=== PATIENT | male | born 1985 | race Caucasian/White ===

== ENCOUNTER 2022-03-12 17:38 | Emergency (ER) | payer BC, SELFPAY ==
--- NOTE | 2022-03-12 18:43 | ED.LOWEXIN ---
HPI - Extremity Injury (Lower) General Time Seen by Provider: 18:30 Date Seen: 03/12/22 Chief Complaint: Extremity Pain/Injury, Lower Stated Complaint: INFECTED LEG/FEVER Time Seen by Provider: 03/12/22 17:44 Source: patient and family Mode of arrival: ambulatory Limitations: no limitations History of Present Illness HPI Narrative: Luis Enrique is a very pleasant 36-year-old male previously healthy who comes to the emergency room for evaluation regarding left leg redness. Patient was noted to have had a leg injury approximately 1 month ago where he slipped and caused skin avulsion and laceration to his left anterior alarcon. He was seen the following day and placed on Keflex and also had stitches placed. Healing since that time until he noticed some redness around the wound yesterday. He was seen at [facility] at which time they started him on clindamycin. Earlier today he actually had receding area of redness. However, tonight he has increasing erythema now spreading on to both sides of his legs and inferiorly associated with a fever and chills. He has not had any vomiting. He notes he has no pain at rest but does have pain when he is walking. He denies a history of diabetes, MRSA, or hard to treat wounds. complaint: leg injury Onset (ago): month(s) Place: work Exacerbating factors: weight bearing and movement Context: fall Related Data Home Medications Medication Instructions Recorded Confirmed clindamycin HCl 150 mg capsule mg 03/12/22 Allergies Allergy/AdvReac Type Severity Reaction Status Date / Time No Known Drug Allergies Allergy Verified 03/12/22 18:01 Review of Systems Const: Reports: fever and chills [facility] Medical History No significant past medical history Surgical History No significant past surgical history Social History Smoking Status: Current every day smoker What tobacco products do you use: cigarettes Do you use any of these nicotine containing products: None Second hand tobacco smoke exposure: Yes How often do you have a drink containing alcohol: 2-3 times a week How many standard drinks containing alcohol do you have on a typical day: 3 or 4 How often do you have six or more drinks on one occasion: Less than monthly AUDIT-C Alcohol total score: 5 Non-prescribed substance use: denies use Exam Narrative: Exam Narrative: As I enter room 5 patient is resting comfortably on the bed. His is beside him very loving and supportive. Const: Vital Signs, click to edit/add: Vital Signs - 24 hr 03/12/22 19:17 03/12/22 20:00 03/12/22 20:30 Temperature 101.3 F H 99.8 F H Pulse Rate [Pulse Oximeter] 78 79 87 Respiratory Rate 16 14 Blood Pressure [Ri ght Upper Arm] 113/84 107/70 110/68 Pulse Oximetry 97 97 96 Common normals: no apparent distress, average body habitus, oriented x3 and no limitations General appearance: cooperative, comfortable, well kempt and well developed Eye: General eye: normal appearance of both eyes Resp: Common normals: normal respiratory effort Cardio: Common normals: regular rate and regular rhythm Rate: regular rate Rhythm: regular rhythm GI: Common normals: soft to palpation and non-tender Palpation: soft Extremity: Left lower extremity: lower leg Other: 8-1/2 cm linear scab in various stages of healing with serous fluid leaking from the bottom noted. There is surrounding erythema that is warm to the touch. Not significantly well-demarcated extending along the medial and lateral aspect of the calf. Calf itself is palpated and there is no tenderness. Erythema extends up to but not onto the ankle. Neuro: Common normals: oriented x3 Psych: Appearance: well kempt Course Course Hospital Course: IV will be placed, laboratory values drawn, fluids given. Reevaluation(s) Reevaluation #1: Patient noted to be feeling improved after receiving Tylenol 1 g p.o.. Time: 20:30 Consultations Consultation #1: Dr. Ramírez, hospitalist was consulted regarding this patient's need for admission versus outpatient antibiotics. He feels at this time that outpatient antibiotics would be appropriate. We have ordered 1.25 g IV b.i.d.. Both Dr. Ramírez and myself are available over the next 2 days for recheck of this wound. Time: 21:11 Vital Signs Vital signs: Initial Vital Signs Temperature 101.3 F H 03/12/22 19:17 Temperature Source Temporal Artery Scan 03/12/22 19:17 Pulse Rate 78 03/12/22 19:17 Pulse Rhythm 03/12/22 19:17 Blood Pressure 113/84 03/12/22 19:17 Blood Pressure Mean 93 03/12/22 19:17 Blood Pressure Position Supine 03/12/22 19:17 Pulse Oximetry 97 03/12/22 19:17 Oxygen Delivery Method 03/12/22 19:17 Vital Signs Temperature 101.3 F H 03/12/22 19:17 Pulse Rate 78 03/12/22 19:17 Blood Pressure 113/84 03/12/22 19:17 Pulse Oximetry 97 03/12/22 19:17 Temperature 99.8 F H 03/12/22 20:30 Pulse Rate 87 03/12/22 20:30 Respiratory Rate 14 03/12/22 20:30 Blood Pressure 110/68 03/12/22 20:30 Pulse Oximetry 96 03/12/22 20:30 MDM - Extremity Injury (Lower) MDM Narrative Medical decision making narrative: At this time differential diagnosis includes cellulitis and abscess. Will have a CBC, comprehensive, CRP labs drawn. Will also include a wound culture and blood cultures as this gentleman's temperature approach is 102 at this time. Given the time frame of rapidly is expanding cellulitis, I do feel we should switch to IV antibiotics. I have ordered vancomycin 1 g based on 15 milligrams/kilos 0. I have also ordered Zosyn 3.[address] Ramírez has been contacted as hospitalist regarding the potential admission of this patient. Medical Records Attestation: I reviewed the patient's medical records. Lab Data Attestation: I reviewed the patient's lab results. Lab results narrative: White count elevated at 12.36 CRP is pending. Lactate normal at 1.4. Labs: Lab Results 03/12/22 03/12/22 03/12/22 Range/Units 18:39 18:39 19:27 WBC 12.36 H (4.50-11.00) K/uL RBC 4.76 (4.30-5.90) m/uL Hgb 14.9 (13.5-17.5) gm/dL Hct 43.0 (37.0-53.0) % MCV 90 (80-100) fL MCH 31 (26-34) pg MCHC 35 (32-36) gm/dL RDW Coeff of Ying 11.7 (11.5-15.5) % Plt Count 294 (140-440) K/uL Neut % (Auto) 86.1 H (42.0-72.0) % Lymph % (Auto) 6.6 L (20-44) % Lucas % (Auto) 7.2 (0.0-11.0) % Eos % (Auto) 0.0 (0.0-7.0) % Baso % (Auto) 0.0 (0.0-3.0) % Neut # (Auto) 10.60 H (1.7-7.0) K/uL Lymph # (Auto) 0.80 L (0.90-2.90) K/uL Lucas # (Auto) 0.90 (0.00-0.90) K/UL Eos # (Auto) 0.00 (0.00-0.50) K/uL Baso # (Auto) 0.00 (0.00-0.30) K/uL Abs Immat Gran (auto) 0.01 (0.00-0.30) K/uL Sodium 138 (135-149) mmol/L Potassium 3.4 L (3.6-5.1) mmol/L Chloride 109 (96-114) mmol/L Carbon Dioxide 17 L (20-32) mmol/L BUN 15 (5-24) mg/dL Creatinine 0.9 (0.5-1.5) mg/dL Glucose 108 (60-115) mg/dL Calcium 9.1 (8.4-10.6) mg/dL Total Bilirubin 1.9 H (0.1-1.5) mg/dL AST 23 (12-35) U/L ALT 16 (4-50) U/L Alkaline Phosphatase 69 (40-150) U/L C-Reactive Protein 5.8 H (0.5-1.0) mg/dL Total Protein 7.3 (6.0-8.3) g/dL Albumin 4.5 (3.3-5.0) g/dL SARS-CoV-2 (PCR) (Negative) 03/12/22 Range/Units 20:00 WBC (4.50-11.00) K/uL RBC (4.30-5.90) m/uL Hgb (13.5-17.5) gm/dL Hct (37.0-53.0) % MCV (80-100) fL MCH (26-34) pg MCHC (32-36) gm/dL RDW Coeff of Ying (11.5-15.5) % Plt Count (140-440) K/uL Neut % (Auto) (42.0-72.0) % Lymph % (Auto) (20-44) % Lucas % (Auto) (0.0-11.0) % Eos % (Auto) (0.0-7.0) % Baso % (Auto) (0.0-3.0) % Neut # (Auto) (1.7-7.0) K/uL Lymph # (Auto) (0.90-2.90) K/uL Lucas # (Auto) (0.00-0.90) K/UL Eos # (Auto) (0.00-0.50) K/uL Baso # (Auto) (0.00-0.30) K/uL Abs Immat Gran (auto) (0.00-0.30) K/uL Sodium (135-149) mmol/L Potassium (3.6-5.1) mmol/L Chloride (96-114) mmol/L Carbon Dioxide (20-32) mmol/L BUN (5-24) mg/dL Creatinine (0.5-1.5) mg/dL Glucose (60-115) mg/dL Calcium (8.4-10.6) mg/dL Total Bilirubin (0.1-1.5) mg/dL AST (12-35) U/L ALT (4-50) U/L Alkaline Phosphatase (40-150) U/L C-Reactive Protein (0.5-1.0) mg/dL Total Protein (6.0-8.3) g/dL Albumin (3.3-5.0) g/dL SARS-CoV-2 (PCR) Negative SARS-CoV-2 (Negative) Discharge Plan Discharge Clinical Impression: Cellulitis Patient Disposition: Home, Self-Care Condition: Improved Instructions: Cellulitis (ED) Additional Instructions: Tylenol or ibuprofen may be used for fever. Return every 12 hours for IV antibiotics. Next check of your wound will be tomorrow evening. Return to the emergency room for worsening symptoms including vomiting, increasing redness, onset of additional symptoms. Activity Level: Activity as Tolerated Activity Detail: As much as possible could try to keep leg elevated. Discharge Diet: Regular Prescriptions: No Action clindamycin HCl 150 mg capsule 0RF Follow Up/Referrals: Miguel Cottrell MD [Primary Care Provider] - Stand Alone Forms: [employer] Info Instructions
[2022-03-12 19:17] VITALS: BP 113/84; PULSE 78; TEMP 38.5; O2SAT 97; BMI 21.2
[2022-03-12] MEDS: 0.9 % SODIUM CHLORIDE 1000 ml 1,000 ML IV (19:23)
[2022-03-12 19:37] LABS: Hemoglobin* 14.9 gm/dL (13.5-17.5); Immature Granulocytes Abs Auto 0.01 K/uL (0.00-0.30); Lymphocytes Percent Auto 6.6 % (20-44); Mean Corpuscular HGB Conc 35 gm/dL (32-36); Mean Corpuscular Hemoglobin 31 pg (26-34); Mean Corpuscular Volume 90 fL (80-100); Monocytes Percent Auto 7.2 % (0.0-11.0); Neutrophils Percent Auto 86.1 % (42.0-72.0); Platelet Count* 294 K/uL (140-440); RDW Coefficient of Variation % 11.7 % (11.5-15.5); Red Blood Count 4.76 m/uL (4.30-5.90); White Blood Count* 12.36 K/uL (4.50-11.00)
[2022-03-12] MEDS: ACETAMINOPHEN 500 MG TABLET 1000 MG PO (19:38)
[2022-03-12 19:40] LABS: Lactate Sepsis w/Reflex* 1.4
[2022-03-12 19:54] LABS: Albumin* 4.5 g/dL (3.3-5.0); Chloride* 109 mmol/L (96-114); Potassium* 3.4 mmol/L (3.6-5.1); Slide Review Reflex No; Sodium* 138 mmol/L (135-149)
[2022-03-12 19:56] LABS: Creatinine* 0.9 mg/dL (0.5-1.5); Estimated Glomerular Filt Rate 112.11
[2022-03-12 19:57] LABS: Alanine Aminotransferase* 16 U/L (4-50); Alkaline Phosphatase* 69 U/L (40-150); Aspartate Amino Transferase* 23 U/L (12-35); Bilirubin Total* 1.9 mg/dL (0.1-1.5); Blood Urea Nitrogen* 15 mg/dL (5-24); Carbon Dioxide* 17 mmol/L (20-32); Glucose* 108 mg/dL (60-115); Total Protein* 7.3 g/dL (6.0-8.3)
[2022-03-12 19:58] LABS: Calcium* 9.1 mg/dL (8.4-10.6)
[2022-03-12 20:00] VITALS: BP 107/70; BP 113/73; PULSE 79; RESP 16; O2SAT 97
--- NOTE | 2022-03-12 20:15 | ED.NURSE ---
RN instructed to run Vancomycin first, called RN sup to get medication from pharmacy.
[2022-03-12 20:30] VITALS: BP 110/68; PULSE 87; RESP 14; TEMP 37.7; O2SAT 96
[2022-03-12 21:05] LABS: C Reactive Protein* 5.8 mg/dL (0.5-1.0)
[2022-03-12 21:11] LABS: SARS PCR* Negative SARS-CoV-2 (Negative)
[2022-03-12 21:49] VITALS: BP 115/74; PULSE 73; RESP 16; TEMP 37.4
== END 2022-03-12 21:53 | disposition home or self-care (01) ==
PROVIDERS: Emergency Provider Family Medicine; PCP Family Medicine
DX: L03.116 Cellulitis of left lower limb (principal)
CPT/HCPCS: 36415; 80053; 85025; 86140; 87040; 87077; 87186; 87205; 87635; 96365; 96366; 99284; A9270; J3370; J7030; J7050

== ENCOUNTER 2022-03-15 20:38 | Observation (INO) | payer BC, SELFPAY ==
[2022-03-15 20:42] VITALS: BP 114/74; PULSE 48; RESP 16; TEMP 37.3; O2SAT 98
--- NOTE | 2022-03-15 20:42 | CRLHL7_ITS ---
For Patients: As a result of the Century Cures Act, medical imaging exams and procedure reports are released immediately into your electronic medical record. You may view this report before your referring provider. If you have questions, please contact your health care provider. INDICATION: Cellulitis TECHNIQUE: Tibia-fibula radiograph 2 views right COMPARISON: None FINDINGS: Bone: No acute fractures or aggressive bone lesions are identified. Joint: The visualized knee and ankle joints are unremarkable. No significant joint effusion is seen. Soft tissue: Mild subcutaneous edema is noted. A suspected small focus of soft tissue gas is seen along the anterior mid alarcon. No radiopaque foreign bodies are seen. IMPRESSION: 1. No osteomyelitis is noted but assessment with MRI is more sensitive. Dictated by: Donato Kay MD @ 03/15/2022 23:07:27 (Electronically Signed)
--- NOTE | 2022-03-15 20:52 | P.IMHP_ITS ---
Hospitalist- H&P: HPI History of Present Illness Date Seen: 03/15/22 Chief complaint: Direct Admit Narrative: ADMISSION HISTORY AND PHYSICAL - HOSPITALIST Chief Complaint: Ongoing right leg cellulitis, failing outpatient therapy Date of injury: 02/16/2022 HPI: 36-year-old gentleman who has been seen in the ED twice and as an outpatient infusion patient presents tonight for outpatient infusion on the [facility] floor. There was concern that his recent injury to his right lower extremity and ensuing cellulitis is not improving with current treatments. The patient injured his right alarcon on the evening of 02/16/22 - he scraped his alarcon deeply on a trailer hitch. He was seen at the [facility] ED in [place] on the morning of 02/17. His tetanus was up-to-date as of 2019. Otherwise healthy. However, he is a smoker. His 6 cm laceration of his right anterior alarcon was cleansed, explored and closed with 8 superficial sutures. He was started on Keflex for 7 days. He had those removed the same ER on 02/28. No concern for infection at that point. On 03/11 he had concerns regarding redness and swelling with drainage. He was seen at a [facility]? [place]? And was started on clindamycin. The next day 03/12 he presented to our ED, Dr. Negron, complaining worsening erythema and fever and chills. He was consulted for inpatient admission and felt like we could do outpatient IV vanc and culture the wound. At that visit he had a slight leukocytosis of 12.36, C reactive protein of 5.8, total bili 1.9, mildly decreased potassium and carbon dioxide. Normal renal function. He subsequently had negative blood cultures drawn on the . His wound culture from the same day ultimately grew out a small amount of group C strep and coag neg staph. Susceptibilities are still pending. He has been receiving b.i.d. doses of IV vancomycin since the the . So he has received 6 doses of IV vanc. Tonight it does not appear he is making any progress in regards to the erythema, pain with ambulation. He still reporting some scattered fevers. No vomiting. The drainage changed some today and looks more purulent to him. He feels the surrounding erythema feels more boggy to him tonight. 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 No imaging has been completed as of yet. REVIEW OF SYSTEMS: 12-point ROS completed with patient and negative unless otherwise stated in HPI or below. PHYSICAL EXAM: CODE STATUS: Full code CONSTITUTIONAL: Conversive, good historian. A/O. Knows setting and context. VITAL SIGNS: see record. HEENT: Normocephalic, atraumatic. PERRL, EOMI, conjunctivae pink, no scleral icterus. Ears and nose externally normal. Pharynx normal. NECK: No JVD. No carotid bruit, no thyromegaly, no adenopathy. CHEST: Clear to auscultation bilaterally HEART: S1 and S2 normal. No harsh murmurs. Edema MUSCULOSKELETAL: Right tibia reveals a roughly 6 cm hardened scab with significant erythema distal and medial and lateral to the wound. No obvious fluctuance or drainage noted. Trace pedal edema. There is some bogginess surrounding the anterior tibia. NEURO: Cranial nerves intact. Grossly intact. No asymmetric findings. SKIN: No rashes, petechiae, concerning changes PSYCHIATRIC: Euthymic. ADMIT DVT: Lovenox GI: PO intake Time spent: 50 minutes examining patient, conferring with family and patient, care staff, developing care plan [facility] Medical History (Updated 03/15/22 @ 21:10 by Aleida Burris MD) Cellulitis No significant past medical history Tobacco dependence Surgical History (Updated 03/15/22 @ 21:10 by Aleida Burris MD) Ganglion No significant past surgical history Social History Smoking Status: Current every day smoker What tobacco products do you use: cigarettes Do you use any of these nicotine containing products: None Second hand tobacco smoke exposure: Yes How often do you have a drink containing alcohol: 2-3 times a week How many standard drinks containing alcohol do you have on a typical day: 3 or 4 How often do you have six or more drinks on one occasion: Less than monthly AUDIT-C Alcohol total score: 5 Non-prescribed substance use: denies use Meds Home Medications and Allergies Home Medications Medication Instructions Recorded Confirmed Type clindamycin HCl 150 mg capsule mg 03/12/22 History Allergies Allergy/AdvReac Type Severity Reaction Status Date / Time No Known Drug Allergies Allergy Verified 03/12/22 18:01 Assessment and Plan Assessment and plan (1) Cellulitis: Problem comment: Right anterior tibia, scripted on a trailer hitch. 02/17/2022 Status: Acute Assessment and Plan: Change vanc to IV Rocephin. Await culture sensitivities. New labs and blood cultures ordered. X-ray, ultrasound ordered. May consider MRI. I will text ortho and see about I/D bedside vs OR. (2) Tobacco dependence: Status: Acute Assessment and Plan: Tobacco replacement offered. Pascual p.r.n.
[2022-03-15] MEDS: cefTRIAXone 2 GM in 0.9 % SODIUM CHLORIDE Mini-bag 100 ML IVPB (21:50)
[2022-03-15] MEDS: ENOXAPARIN 40 MG/0.4 ML INJ SUBCUT (21:51)
[2022-03-15] MEDS: NICOTINE 7 MG PATCH 1 PATCH TRANSDERMA (21:52)
[2022-03-15 22:27] VITALS: BP 114/74; PULSE 48; RESP 16; TEMP 37.3; O2SAT 98; BMI 21.1
[2022-03-15 22:52] LABS: HCO3 VBG 24 mmol/L (21-28); PCO2 VBG 40 mmHG (40-50); PO2 VBG 37.1 mmHG (25-47); pH VBG 7.389 (7.32-7.43)
[2022-03-15 22:56] LABS: Basophils Absolute Auto 0.01 K/uL (0.00-0.30); Basophils Percent Auto 0.1 % (0.0-3.0); Eosinophils Absolute Auto 0.25 K/uL (0.00-0.50); Eosinophils Percent Auto 3.6 % (0.0-7.0); Hematocrit 39.3 % (37.0-53.0); Hemoglobin* 13.5 gm/dL (13.5-17.5); Immature Granulocytes Abs Auto 0.04 K/uL (0.00-0.30); Lymphocytes Percent Auto 24.8 % (20-44); Mean Corpuscular HGB Conc 34 gm/dL (32-36); Mean Corpuscular Hemoglobin 32 pg (26-34); Mean Corpuscular Volume 92 fL (80-100); Monocytes Percent Auto 13.6 % (0.0-11.0); Neutrophils Absolute Auto 3.92 K/uL (1.7-7.0); Neutrophils Percent Auto 57.3 % (42.0-72.0); Platelet Count* 276 K/uL (140-440); Red Blood Count 4.29 m/uL (4.30-5.90); White Blood Count* 6.85 K/uL (4.50-11.00)
[2022-03-15 22:57] LABS: Lactate* 1.1 mmol/L (0.5-1.9)
[2022-03-15 23:07] LABS: Albumin* 3.8 g/dL (3.3-5.0); Chloride* 112 mmol/L (96-114)
[2022-03-15 23:08] LABS: Potassium* 3.5 mmol/L (3.6-5.1); Sodium* 142 mmol/L (135-149)
[2022-03-15 23:10] LABS: Aspartate Amino Transferase* 32 U/L (12-35); Bilirubin Total* 0.4 mg/dL (0.1-1.5); Carbon Dioxide* 22 mmol/L (20-32); Creatinine* 0.7 mg/dL (0.5-1.5); Est. Creatinine Clearance* 142.58; Estimated Glomerular Filt Rate 120.95; Total Protein* 6.7 g/dL (6.0-8.3)
[2022-03-15 23:11] LABS: Alanine Aminotransferase* 27 U/L (4-50); Alkaline Phosphatase* 70 U/L (40-150); Blood Urea Nitrogen* 13 mg/dL (5-24); Calcium* 8.6 mg/dL (8.4-10.6); Glucose* 100 mg/dL (60-115); Magnesium* 2.2 mg/dL (1.5-2.6)
[2022-03-15 23:13] LABS: C Reactive Protein* 7.9 mg/dL (0.5-1.0)
[2022-03-15 23:15] VITALS: BP 108/62; PULSE 50; RESP 16; TEMP 37.2; O2SAT 98
[2022-03-16] VITALS (7 sets, daily range): BP systolic 106–123; BP diastolic 63–77; PULSE 44–54; RESP 16; TEMP 36.8–37.5; O2SAT 99–100
[2022-03-16 03:48] LABS: SARS PCR* Negative SARS-CoV-2 (Negative)
--- NOTE | 2022-03-16 05:16 | PC.NURSE ---
SHIFT NOTE [id number]: PT CALM AND PLEASANT. PT DENIES CHEST PAIN, SOB, N/V. PT AMBULATES INDEPENDENTLY WITH RIGHT SIDED LIMP D/T RLE CELLULITIS. AREA OF CELLULITIS TO RLE HAS BEEN OUTLINE WITH MARKER. PT GIVEN CEFTRIAXONE IVPB. RIGHT LEG WOUND SPECIMEN RESULTS YIELDED GRAM POSITIVE COCCI AND PRELIMINARY CULTURE: GROUP C STREP ON 03/12. X-RAY TAKEN AND RLE NOTED TO HAVE MILD SUBCUTANEOUS EDEMA TO ANNE. VSS AND WNL ON RA; AFEBRILE.
[2022-03-16 05:24] LABS: Slide Review Reflex No
[2022-03-16 06:45] LABS: Basophils Absolute Auto 0.01 K/uL (0.00-0.30); Basophils Percent Auto 0.2 % (0.0-3.0); Eosinophils Absolute Auto 0.16 K/uL (0.00-0.50); Eosinophils Percent Auto 2.8 % (0.0-7.0); Hematocrit 41.6 % (37.0-53.0); Hemoglobin* 14.2 gm/dL (13.5-17.5); Immature Granulocytes Abs Auto 0.01 K/uL (0.00-0.30); Lymphocytes Absolute Auto 1.34 K/uL (0.90-2.90); Lymphocytes Percent Auto 23.1 % (20-44); Mean Corpuscular HGB Conc 34 gm/dL (32-36); Mean Corpuscular Hemoglobin 31 pg (26-34); Mean Corpuscular Volume 91 fL (80-100); Monocytes Percent Auto 13.1 % (0.0-11.0); Neutrophils Absolute Auto 3.53 K/uL (1.7-7.0); Neutrophils Percent Auto 60.6 % (42.0-72.0); Platelet Count* 276 K/uL (140-440); Red Blood Count 4.56 m/uL (4.30-5.90); White Blood Count* 5.81 K/uL (4.50-11.00)
[2022-03-16 07:06] LABS: C Reactive Protein* 6.8 mg/dL (0.5-1.0)
[2022-03-16 07:16] LABS: Slide Review Reflex No
[2022-03-16] MEDS: ACETAMINOPHEN 325 MG TABLET PO (07:59)
--- NOTE | 2022-03-16 11:58 | PM.ORCN ---
History of Present Illness HPI Time Seen by Provider: 09:30 Date Seen: 03/16/22 Consult date: 03/16/22 Requesting physician: Aleida Burris Consult reason: other (Right tibial wound and cellulitis x1 month) Chief complaint: Direct Admit Narrative: Luis Enrique is a very pleasant 36-year-old young man, on [facility] with right lower extremity cellulitis and anterior tibial wound that has been present for 1 month. He scraped his tibial area on a trailer hitch. His date of injury was 02/16/2022. He has been to the emergency room twice as an outpatient infusion patient with vancomycin. Yesterday he was seen for an infusion and there was concern that his cellulitis was not improving and he was admitted to [facility]. He was seen initially at [facility] in [place] on the morning of 02 17. His tetanus was up-to-date in 2019. He is otherwise healthy, however he is a smoker. He initially had his wound cleaned, explored and closed with sutures. His sutures have been removed he states. He was on Keflex for 7 days. At the time of suture removal there is no concern for infection. Six hundred twenty-eight redness and swelling and drainage occurred. He was seen at [facility] in [place]. He was started on clindamycin. The next day he presented to our emergency department and saw Dr. Negron with worsening erythema, fever, chills. He was consulted for inpatient admission and felt he would do well with outpatient IV vancomycin and culture of the wound. At that visit, slight leukocytosis of 12.36, C reactive protein of 5.8. Negative blood cultures drawn on the . His wound cultures from the same day ultimately grew out small amount of group C strep and coag-negative staph. He has been receiving b.i.d. doses of IV vancomycin since the . He was switched to ceftriaxone in the hospital here. The erythematous area was initially marked with a sharpie marker by another provider. Patient states the erythematous area has shrunk, however he continues to have tenderness over the tibia and redness. His wound is scabbed with drainage. Review of Systems Status of ROS: Reports: 6 or more systems reviewed and unremarkable except as noted in History and below Narrative: Patient denies nausea, vomiting, current fever, current chills, chest pain, shortness of breath Musculo: Reports: other (Wound, Pain, edema, erythema right anterior tibia) Integ/Breast: Reports: rash (Cellulitis), redness, skin tenderness, skin swelling and non-healing lesion (Draining) [facility] Medical History (Updated 03/16/22 @ 12:53 by Mirian Vargas PA-C) Cellulitis No significant past medical history Tobacco dependence Surgical History (Updated 03/15/22 @ 22:49 by Sarah Pillai RN) Ganglion No significant past surgical history Family History (Updated 03/15/22 @ 22:55 by Sarah Pillai RN) Paternal Grandfather Alzheimer disease Myocardial infarction Father Cancer COPD (chronic obstructive pulmonary disease) Paternal Grandmother Cancer Maternal Grandmother Cancer Maternal Grandfather Myocardial infarction Social History Highest level of school completed/degree received: high school graduate Smoking Status: Current every day smoker What tobacco products do you use: cigarettes Smoking packs per day: 1 Smoking cigarettes per day: 20.0 Years smoked: 15 Smoking pack-years: 15.00 Do you use any of these nicotine containing products: None Second hand tobacco smoke exposure: Yes How often do you have a drink containing alcohol: 2-3 times a week Alcohol type: beer How many standard drinks containing alcohol do you have on a typical day: 3 or 4 How often do you have six or more drinks on one occasion: Less than monthly AUDIT-C Alcohol total score: 5 Non-prescribed substance use: denies use Caffeine: No Do you think of yourself as: straight/heterosexual Gender Identity: male service: No Meds Home Medications and Allergies Home Medications Medication Instructions Recorded Confirmed Type clindamycin HCl 150 mg capsule mg 03/12/22 History Allergies Allergy/AdvReac Type Severity Reaction Status Date / Time No Known Drug Allergies Allergy Verified 03/12/22 18:01 Ortho Exam Narrative Exam Narrative: Alert and oriented x3. Patient is in no acute distress. Converses without labored breathing. Hearing is grossly intact. Examined supine in hospital bed today. Pedal pulses are palpable. Sensation intact right foot. Sedation around the wound in the edematous areas. Const Vital Signs, click to edit/add: Vital Signs - 24 hr 03/15/22 20:42 03/15/22 22:27 03/15/22 23:15 Temperature 99.1 F 99.1 F 99.0 F Pulse Rate [Left Blood Pressure Cuff] 48 L 48 L Pulse Rate [Left Pulse Oximeter] 50 L Respiratory Rate 16 16 16 Blood Pressure [Left Arm] 114/74 114/74 Blood Pressure [Right Arm] 108/62 Pulse Oximetry 98 98 98 03/16/22 03:01 03/16/22 07:45 Temperature 98.2 F 98.9 F Pulse Rate [Left Blood Pressure Cuff] Pulse Rate [Left Pulse Oximeter] 48 L 52 L Respiratory Rate 16 16 Blood Pressure [Left Arm] Blood Pressure [Right Arm] 113/67 115/72 Pulse Oximetry 99 100 Common normals: no apparent distress, average body habitus, oriented x3, healthy appearing, alert and well nourished General appearance: cooperative, comfortable, well kempt and well developed Orientation/consciousness: Yes awake, Yes oriented to person, Yes oriented to place and Yes oriented to time HENMT Common normals: Yes hearing grossly normal bilaterally Resp Common normals: Yes normal respiratory effort, Yes no retractions and Yes no use of accessory muscles Effort & inspection: able to speak in complete sentences and symmetric chest movement Cardio Common normals: Yes no JVD Extremity Common normals: full ROM (Right knee, hip, ankle, toes) and normal capillary refill (Right foot.) Right lower extremity: lower leg (Erythema right lower extremity anterior tibial area and posterior calf. ) and foot and digits (Normal right foot) Right foot and digits: inspection, palpation (No soft tissue edema right foot), neurovascular exam (Normal sensation entire right foot.) and tendon exam (Tendons normal right lower extremity.) Other: No calf tenderness bilateral. Neuro Common normals: oriented x3 Sensorium/orientation: awake, alert, oriented to person, oriented to place and oriented to time Speech: speech normal Motor exam: no tremor noted and muscle tone normal throughout Psych Common normals: mental status grossly normal, thought process normal, cooperative, affect normal, speech normal and activity/motor behavior normal Appearance: grossly normal and well kempt Attitude: calm and engaged Activity/motor behavior: appropriate eye contact Speech: normal speech Mood and affect: euthymic mood Thought process: normal thought process Thought content: normal thought content Attention/concentration: attention grossly intact and concentration grossly intact Memory/cognition: memory grossly intact Insight: insight good Judgement: judgment good Skin Narrative: Erythema with skin tenderness right lower extremity anterior tibial area to the ankle and posterior calf area which is more mild posteriorly. There is a sharpie marker that has outlined previous extent of the erythema. Erythema has retracted significantly from the marking area. Pitting edema is present in the erythematous area of the anterior alarcon. Anterior tibial wound with thick eschar and wound drainage is mild. Medial edge of the eschar is opened and not attached to surrounding skin in this area. Eschar is attached to the skin on all other edges. There is also a small medial wound more distal just above the ankle area which is very superficial. There is no drainage of the small wound. He states this is from chiggers from about a month ago. General skin exam: Yes erythema and Yes eschar Results Labs Labs: Laboratory Results - last 48 hr 03/15/22 03/15/22 03/15/22 22:35 22:35 22:35 WBC 6.85 RBC 4.29 L Hgb 13.5 Hct 39.3 MCV 92 MCH 32 MCHC 34 RDW Coeff of Ying 12.0 Plt Count 276 Neut % (Auto) 57.3 Lymph % (Auto) 24.8 [place] % (Auto) 13.6 H Eos % (Auto) 3.6 Baso % (Auto) 0.1 Neut # (Auto) 3.92 Lymph # (Auto) 1.70 [place] # (Auto) 0.90 Eos # (Auto) 0.25 Baso # (Auto) 0.01 Abs Immat Gran (auto) 0.04 VBG pH 7.389 VBG pCO2 40 VBG pO2 37.1 VBG HCO3 24 Sodium 142 Potassium 3.5 L Chloride 112 Carbon Dioxide 22 BUN 13 Creatinine 0.7 Estimated Creat Clear 142.58 Glucose 100 Lactate Calcium 8.6 Magnesium 2.2 Total Bilirubin 0.4 AST 32 ALT 27 Alkaline Phosphatase 70 C-Reactive Protein 7.9 H Total Protein 6.7 Albumin 3.8 SARS-CoV-2 (PCR) 03/15/22 03/16/22 03/16/22 22:35 03:01 06:25 WBC 5.81 RBC 4.56 Hgb 14.2 Hct 41.6 MCV 91 MCH 31 MCHC 34 RDW Coeff of Ying 12.0 Plt Count 276 Neut % (Auto) 60.6 Lymph % (Auto) 23.1 [place] % (Auto) 13.1 H Eos % (Auto) 2.8 Baso % (Auto) 0.2 Neut # (Auto) 3.53 Lymph # (Auto) 1.34 [place] # (Auto) 0.80 Eos # (Auto) 0.16 Baso # (Auto) 0.01 Abs Immat Gran (auto) 0.01 VBG pH VBG pCO2 VBG pO2 VBG HCO3 Sodium Potassium Chloride Carbon Dioxide BUN Creatinine Estimated Creat Clear Glucose Lactate 1.1 Calcium Magnesium Total Bilirubin AST ALT Alkaline Phosphatase C-Reactive Protein Total Protein Albumin SARS-CoV-2 (PCR) Negative SARS-CoV-2 03/16/22 06:25 WBC RBC Hgb Hct MCV MCH MCHC RDW Coeff of Ying Plt Count Neut % (Auto) Lymph % (Auto) [place] % (Auto) Eos % (Auto) Baso % (Auto) Neut # (Auto) Lymph # (Auto) [place] # (Auto) Eos # (Auto) Baso # (Auto) Abs Immat Gran (auto) VBG pH VBG pCO2 VBG pO2 VBG HCO3 Sodium Potassium Chloride Carbon Dioxide BUN Creatinine Estimated Creat Clear Glucose Lactate Calcium Magnesium Total Bilirubin AST ALT Alkaline Phosphatase C-Reactive Protein 6.8 H Total Protein Albumin SARS-CoV-2 (PCR) Diagnostic results Additional Comments: 03/15/2022 AP and lateral of the right tib-fib shows no fractures. No osteomyelitis 03/16/2022 ultrasound of the right lower extremity shows no abscess. Edema is present. MRI scheduled of the right tib-fib in 2 days to rule out osteomyelitis. Assessment and Plan Assessment and plan (1) Cellulitis: Problem comment: Right anterior tibia, scripted on a trailer hitch. 02/17/2022 Status: Acute Total time spent: Total time spent is greater than 50% in coordination of care (as documented) at patient's floor/unit and/or counseling patient: (2) Tobacco dependence: Status: Acute Total time spent: Total time spent is greater than 50% in coordination of care (as documented) at patient's floor/unit and/or counseling patient: (3) Wound drainage: Status: Acute Plan There is no palpable abscess to drain. Antibiotics will be continued. I have informed Dr. Aleida Burris and Dr. Frankel of today's findings and debridement procedure. I have also contacted [facility] physician paraprofessional education assistant with orthopedics and wound care provider. [facility] is happy to see patient this coming week for wound check. I have also emailed our office to be sure the patient gets an appointment with orthopedics and [facility] this week. The wound Care Center is full for the next 2 weeks. [facility] can transition him to wound care center eventually if needed. He continues on ceftriaxone. This could likely be infused as an outpatient. His wound is debrided to muscle. There is undermining proximally 4 mm medial and lateral, mid wound 3 mm medial and lateral, distal wound 2 mm medial and lateral. Healthy wound base. Wound depth is 5 mm. The wound and eschar is debrided with a 5 mm disposable skin currette. The wound is irrigated with Vashe, 4 oz. Meglisorb is placed in the wound and Mepilex dressing. This dressing can be changed initially daily. Debridement took 20 minutes. The small wound was lightly debrided as well. This is very superficial. No dressings needed on the smaller wound distally. Wound cultures were taken today as well after debridement at the base of the wound after Vashe wound cleanser was used and the wound was dried with a 4 x 4 gauze. An MRI has been scheduled in 2 days of the right tibia to rule out osteomyelitis. He can transition to home from med surg when medically appropriate.
--- NOTE | 2022-03-16 15:20 | PM.IMPN1 ---
Progress Note: A&P Assessment and plan (1) Cellulitis: Problem details: Right anterior tibia, Scraped on a trailer hitch. 02/16/2022 Status: Acute Assessment and Plan: significant improvement overnight. I think unroofing the scab and clearing out loculated debris has helped. Labs are reassuring. Imaging is reassuring. I appreciate the help of the ortho team. We will continue 2 g Q 24 of Rocephin. Likely discharge early tomorrow morning. (2) Tobacco dependence: Status: Acute Assessment and Plan: Supportive care (3) Wound drainage: Status: Acute Assessment and Plan: as above Subjective Interval history: Daily Progress Note - Hospital Medicine Day #: 2 Day 2 Rocephin, 2 g. Status post vancomycin 6 doses. CC: Infection and abscess in the right lower extremity. OVERNIGHT UPDATES FROM STAFF & MED, LAB, IMAGING UPDATES Patient has been afebrile. He feels much better. He said there is a lot less pain when he walks on his foot. I and D this morning, bedside, from Ortho. I appreciate their help very much. New cultures pending. Cultures pending. CRP is reassuring. No leukocytosis. Ultrasound shows mild edema, no fluid collections to suggest abscess. Plain film showed no osteomyelitis, however the limited sensitivity is understood. Leukocytosis is down trended 12.3 down to 5.8 this morning. Hemoglobin is stable. Platelets stable. BMP last night on admission shows a mildly low potassium but improved from the 29. Normal renal function. Normal LFTs. CRP had climbed to 5.8-7.9 on admission and it is down to 6.8 this morning. G stain from this morning's I and D shows no organisms. But the wound culture still pending obviously. Blood cultures are pending from last night. Blood cultures from the are negative. And the wound culture was commented on yesterday is growing Staph and strep. Review of Systems: See subjective Cardiac: No new chest pain/pressure/palpitations. Respiratory: no new dyspnea. GI: No abdominal bloating Objective: Vitals: see above Lungs: Clear. Cardiac: S1S2. Left lower extremity: Outlined cellulitic border is regressing. Less boggy around the wound. I did not take down the dressing but compared pictures from this morning to last night's admission. All signs show improvement in clinical status. Disposition/Potential discharge - Likely to return to previous living situation. Total time is 25 minutes with greater than 50% spent in counseling and coordination of care. Exam Const: Vital Signs, click to edit/add: Vital Signs - 24 hr 03/15/22 20:42 03/15/22 22:27 03/15/22 23:15 Temperature 99.1 F 99.1 F 99.0 F Pulse Rate [Left B lood Pressure Cuff ] 48 L 48 L Pulse Rate [Left P ulse Oximeter] 50 L Respiratory Rate 16 16 16 Blood Pressure [Le ft Arm] 114/74 114/74 Blood Pressure [Ri ght Arm] 108/62 Pulse Oximetry 98 98 98 03/16/22 03:01 03/16/22 07:45 03/16/22 12:05 Temperature 98.2 F 98.9 F 99.2 F Pulse Rate [Left B lood Pressure Cuff ] Pulse Rate [Left P ulse Oximeter] 48 L 52 L 46 L Respiratory Rate 16 16 16 Blood Pressure [Le ft Arm] Blood Pressure [Ri ght Arm] 113/67 115/72 106/63 Pulse Oximetry 99 100 99 Labs Labs: Laboratory Results - last 24 hr 03/15/22 03/15/22 03/15/22 22:35 22:35 22:35 WBC 6.85 RBC 4.29 L Hgb 13.5 Hct 39.3 MCV 92 MCH 32 MCHC 34 RDW Coeff of Ying 12.0 Plt Count 276 Neut % (Auto) 57.3 Lymph % (Auto) 24.8 [place] % (Auto) 13.6 H Eos % (Auto) 3.6 Baso % (Auto) 0.1 Neut # (Auto) 3.92 Lymph # (Auto) 1.70 [place] # (Auto) 0.90 Eos # (Auto) 0.25 Baso # (Auto) 0.01 Abs Immat Gran (auto) 0.04 VBG pH 7.389 VBG pCO2 40 VBG pO2 37.1 VBG HCO3 24 Sodium 142 Potassium 3.5 L Chloride 112 Carbon Dioxide 22 BUN 13 Creatinine 0.7 Estimated Creat Clear 142.58 Glucose 100 Lactate Calcium 8.6 Magnesium 2.2 Total Bilirubin 0.4 AST 32 ALT 27 Alkaline Phosphatase 70 C-Reactive Protein 7.9 H Total Protein 6.7 Albumin 3.8 SARS-CoV-2 (PCR) 03/15/22 03/16/22 03/16/22 22:35 03:01 06:25 WBC 5.81 RBC 4.56 Hgb 14.2 Hct 41.6 MCV 91 MCH 31 MCHC 34 RDW Coeff of Ying 12.0 Plt Count 276 Neut % (Auto) 60.6 Lymph % (Auto) 23.1 [place] % (Auto) 13.1 H Eos % (Auto) 2.8 Baso % (Auto) 0.2 Neut # (Auto) 3.53 Lymph # (Auto) 1.34 [place] # (Auto) 0.80 Eos # (Auto) 0.16 Baso # (Auto) 0.01 Abs Immat Gran (auto) 0.01 VBG pH VBG pCO2 VBG pO2 VBG HCO3 Sodium Potassium Chloride Carbon Dioxide BUN Creatinine Estimated Creat Clear Glucose Lactate 1.1 Calcium Magnesium Total Bilirubin AST ALT Alkaline Phosphatase C-Reactive Protein Total Protein Albumin SARS-CoV-2 (PCR) Negative SARS-CoV-2 03/16/22 06:25 WBC RBC Hgb Hct MCV MCH MCHC RDW Coeff of Ying Plt Count Neut % (Auto) Lymph % (Auto) [place] % (Auto) Eos % (Auto) Baso % (Auto) Neut # (Auto) Lymph # (Auto) [place] # (Auto) Eos # (Auto) Baso # (Auto) Abs Immat Gran (auto) VBG pH VBG pCO2 VBG pO2 VBG HCO3 Sodium Potassium Chloride Carbon Dioxide BUN Creatinine Estimated Creat Clear Glucose Lactate Calcium Magnesium Total Bilirubin AST ALT Alkaline Phosphatase C-Reactive Protein 6.8 H Total Protein Albumin SARS-CoV-2 (PCR)
[2022-03-16] MEDS: IBUPROFEN 400 MG TABLET PO (16:00)
[2022-03-16] MEDS: cefTRIAXone 2 GM in 0.9 % SODIUM CHLORIDE Mini-bag 100 ML IVPB (18:16)
[2022-03-16] MEDS: LACTOBACILLUS ACIDOPHILUS 1 TABLET 1 TAB PO (19:41)
--- NOTE | 2022-03-16 20:47 | CRLHL7_ITS ---
For Patients: As a result of the Cures Act, medical imaging exams and procedure reports are released immediately into your electronic medical record. You may view this report before your referring provider. If you have questions, please contact your health care provider. INDICATION: Right leg wound. Evaluate for abscess. FINDINGS: An ultrasound of the soft tissues of the right calf show no rounded fluid collections to suggest abscess formation. Mild edema of the subcutaneous fat. IMPRESSION: No right calf abscess identified. Dictated by Roman Wilson MD @ 03/16/2022 11:26:08 AM Dictated by: Roman Wilson MD @ 03/16/2022 11:26:15 (Electronically Signed)
--- NOTE | 2022-03-16 20:49 | PC.NURSE ---
: Pt. up indep. in room and hallways. Pain rated 0/10 at rest, 3-4/10 when walking; acetaminophen x1 for relief. Temp up to 99.5 this shift, down to 99.0 at recheck after ibuprofen this afternoon. Mirian Stack debrided wound at bedside w/RN assist. Wound cultures obtained and sent to lab. Orders for dressing change daily entered, as well as MRI order. Pt tolerated this well, however became diaphoretic during, but recovered without issue. Vital check normal at this time. IV antibiotic hung at end of shift. Family visit this afternoon. Report given to ROBERT Orourke. Redness definitely receding from outlines on left lower leg. No diarrhea this shift. Started on probiotic.
[2022-03-16] MEDS: ENOXAPARIN 40 MG/0.4 ML INJ SUBCUT (21:16)
[2022-03-16] MEDS: NICOTINE 7 MG PATCH 1 PATCH TRANSDERMA (21:17)
[2022-03-17] VITALS: BP 124/62; PULSE 44; RESP 16; TEMP 36.9; O2SAT 99
[2022-03-17 04:00] VITALS: BP 110/77; PULSE 53; RESP 16; TEMP 36.7; O2SAT 99
--- NOTE | 2022-03-17 06:26 | PC.NURSE ---
[id number]: Patient pleasant and cooperative. Rates pain 1-310. Declined pain medications. Independent in room. Reddened area to RLE receding from marked area. Eating and voiding. Afebrile.
[2022-03-17 08:09] VITALS: BP 112/70; PULSE 52; PULSE 53; RESP 16; TEMP 36.7; O2SAT 99
--- NOTE | 2022-03-17 08:16 | PM.ORPN ---
Subjective Subjective Time Seen by Provider: 08:00 Date Seen: 03/17/22 Principal diagnosis: rt leg cellulitis Interval history: Daily Progress Note - Hospital Medicine Day #: 2 Day 2 Rocephin, 2 g. Status post vancomycin 6 doses. CC: Infection and abscess in the right lower extremity. OVERNIGHT UPDATES FROM STAFF & MED, LAB, IMAGING UPDATES Patient has been afebrile. He feels much better. He said there is a lot less pain when he walks on his foot. I and D this morning, bedside, from Ortho. I appreciate their help very much. New cultures pending. Cultures pending. CRP is reassuring. No leukocytosis. Ultrasound shows mild edema, no fluid collections to suggest abscess. Plain film showed no osteomyelitis, however the limited sensitivity is understood. Leukocytosis is down trended 12.3 down to 5.8 this morning. Hemoglobin is stable. Platelets stable. BMP last night on admission shows a mildly low potassium but improved from the 29th. Normal renal function. Normal LFTs. CRP had climbed to 5.8-7.9 on admission and it is down to 6.8 this morning. G stain from this morning's I and D shows no organisms. But the wound culture still pending obviously. Blood cultures are pending from last night. Blood cultures from the are negative. And the wound culture was commented on yesterday is growing Staph and strep. Review of Systems: See subjective Cardiac: No new chest pain/pressure/palpitations. Respiratory: no new dyspnea. GI: No abdominal bloating Objective: Vitals: see above Lungs: Clear. Cardiac: S1S2. Left lower extremity: Outlined cellulitic border is regressing. Less boggy around the wound. I did not take down the dressing but compared pictures from this morning to last night's admission. All signs show improvement in clinical status. Disposition/Potential discharge - Likely to return to previous living situation. Total time is 25 minutes with greater than 50% spent in counseling and coordination of care. Ortho Exam Narrative Exam Narrative: Alert and oriented x3. Patient is in no acute distress. Converses without labored breathing. Hearing is grossly intact. Right leg erythema is improving. Edema is improved since yesterday as well. Mildly tender to palpation. Tenderness has improved as well. CMS intact right lower extremity. Dressing is in place. Drainage central dressing. Const Vital Signs, click to edit/add: Vital Signs - 24 hr 03/16/22 12:05 03/16/22 16:00 03/16/22 16:30 Temperature 99.2 F 99.5 F 99.5 F Pulse Rate [Left Blood Pressure Cuff] 54 L Pulse Rate [Left Pulse Oximeter] 46 L 54 L Respiratory Rate 16 16 Blood Pressure [Right Arm] 106/63 119/75 Pulse Oximetry 99 99 03/16/22 20:00 03/16/22 23:00 03/17/22 00:00 Temperature 99.0 F 98.5 F Pulse Rate [Left Blood Pressure Cuff] 54 L 44 L Pulse Rate [Left Pulse Oximeter] 54 L 44 L 44 L Respiratory Rate 16 16 Blood Pressure [Right Arm] 123/77 124/62 Pulse Oximetry 100 99 03/17/22 04:00 Temperature 98.1 F Pulse Rate [Left Blood Pressure Cuff] 53 L Pulse Rate [Left Pulse Oximeter] 53 L Respiratory Rate 16 Blood Pressure [Right Arm] 110/77 Pulse Oximetry 99 Documenting provider has reviewed patient's vital signs: yes Assessment and Plan Assessment and plan (1) Cellulitis: Problem details: Right anterior tibia, Scraped on a trailer hitch. 02/16/2022 Status: Acute Assessment and Plan: Patient has improved greatly since the wound was debrided yesterday and with the change of his antibiotic. He can discharge when hospitalist feels it is medically appropriate. Antibiotics will be continued per hospitalist. will see [facility], this week . Emailed our office and they will make an appointment for him and call him. [facility] is also where she will be seen him and is aware of the wound. He will have an MRI as scheduled, to rule out osteomyelitis. The wound did not probe to bone. Think osteomyelitis is not likely, but still remains a possibility. He did not have much drainage over the last 24 hours, therefore he could change his dressing every 2 days. Dressings will be sent home with him.Meglisorb and Mepilex. Dressing is waterproof. He may shower. (2) Tobacco dependence: Status: Acute (3) Wound drainage: Status: Acute
[2022-03-17] MEDS: LACTOBACILLUS ACIDOPHILUS 1 TABLET 1 TAB PO (09:10)
--- NOTE | 2022-03-17 09:11 | PM.DS1 ---
DS: Providers Provider Time Seen by Provider: 08:30 Date Seen: 03/17/22 Date of admission: 03/15/22 20:38 Primary care physician: Miguel Cottrell MD Admitting Clinician: Aleida Burris MD Consults: Orthopedic Surgery Attending Physician on discharge: Aleida Burris MD Date of Discharge: 03/17/22 DS: Summary Hospital Course Hospital Course: Patient was admitted to the hospital for a nonhealing wound on his right lower extremity that failed outpatient therapy. During stay, he was seen by Orthopedic surgery for wound care and treated with IV ceftriaxone. Patient objectively and subjectively improved, will follow-up with ortho as an outpatient for wound care and also has an outpatient MRI scheduled for tomorrow. Time Spent with Patient Time attestation: Total time spent providing and/or coordinating discharge services: Time spent: Less than 30 minutes Exam Const: Vital Signs, click to edit/add: Vital Signs - 24 hr 03/16/22 12:05 03/16/22 16:00 03/16/22 16:30 Temperature 99.2 F 99.5 F 99.5 F Pulse Rate [Left B lood Pressure Cuff ] 54 L Pulse Rate [Left P ulse Oximeter] 46 L 54 L Respiratory Rate 16 16 Blood Pressure [Ri ght Arm] 106/63 119/75 Pulse Oximetry 99 99 03/16/22 20:00 03/16/22 23:00 03/17/22 00:00 Temperature 99.0 F 98.5 F Pulse Rate [Left B lood Pressure Cuff ] 54 L 44 L Pulse Rate [Left P ulse Oximeter] 54 L 44 L 44 L Respiratory Rate 16 16 Blood Pressure [Ri ght Arm] 123/77 124/62 Pulse Oximetry 100 99 03/17/22 04:00 03/17/22 08:09 Temperature 98.1 F 98.0 F Pulse Rate [Left B lood Pressure Cuff ] 53 L 53 L Pulse Rate [Left P ulse Oximeter] 53 L 53 L Respiratory Rate 16 16 Blood Pressure [Ri ght Arm] 110/77 112/70 Pulse Oximetry 99 99 DS: Data Data Completed and Pending Labs on day of discharge: Preliminary micro results at discharge 03/15/22 22:45 Blood Culture - Preliminary Blood NO GROWTH AFTER 24 HOURS 03/15/22 22:35 Blood Culture - Preliminary Blood NO GROWTH AFTER 24 HOURS Discharge Plan Discharge Disposition: Home, Self-Care Date of Admission: 03/15/22 20:38 Attending Provider on Discharge: Aleida Burris Consulting Providers: Mirian Vargas Primary Care Provider: Miguel Cottrell Condition: Improved Anticipated Discharge Date/Time: 03/17/22 08:00 Discharge Medications: Discontinued clindamycin HCl 150 mg capsule 0RF Discharge Orders: Discharge Order (Routine); Ordered 03/17/22 Ordered By: Monica Kaplan Patient Education: Cellulitis (ED) Activity Restrictions/Additional Instructions: MRI 7/5 and Ortho f/u next week. One more dose of IV Ceftriaxone this afternoon. Activity Level: Activity as Tolerated Discharge Diet: Regular Follow Up Appointments: Orthopedics, [facility] [Provider Group] (wound care clinic appt this coming week) Forms: [employer] Info Instructions
--- NOTE | 2022-03-17 10:28 | PC.NURSE ---
Discharge: patient d/c'd at 1020. wound to R alarcon re-dressed prior to d/c with melgisorb and covered with mepilex. cleansed with vashe soln. supplies sent with patient and instructed to bring those to next appt. ODALYS Burdick to call pt tomorrow for f/u plan with dressing change and patient to recieve call for MRI time. MRI scheduled for 03/18/22. pt verbalized understanding. Plan for ceftriaxone infusion to be completed outpatient on m/s floor today at 1600. pt verbalized understanding.
--- NOTE | 2022-03-18 18:46 | PC.NURSE ---
Patient arrived to Med/Surg desk. States he was here for MRI this afternoon. Wanting results of MRI before he drives home in case he needs additional antibiotics. Spoke with hospitalist and reviewed notes with him, ortho was following up with this patient. Spoke with Liam MORROW Ortho clinic several times while awaiting results. MRI results read to Liam MORROW, reviewed culture results, last antibiotic dose yesterday, no further antibiotics at this time. Patient does report right lower leg has increased redness and warmth. Liam is aware of this. RN Ambrosio Millan changed dressing, notes slight pinkness of area but no warmth to touch. Liam would like us to instruct patient to call ortho clinic in AM at 8 o'clock when open to move up appointment from at 1200. Instructed patient to come in Emergency Department if worsening per Liam MORROW. Explained this to patient, patient understands to call ortho clinic at 8 AM and share concerns of increased redness, come to ED if worsening. No further questions.
== END 2022-03-17 10:38 | disposition home or self-care (01) ==
PROVIDERS: Admitting Provider Family Medicine; PCP Family Medicine; Visit Provider Family Medicine
DX: L03.115 Cellulitis of right lower limb (principal); L53.9 Erythematous condition, unspecified; F17.200 Nicotine dependence, unspecified, uncomplicated; S81.801A Unspecified open wound, right lower leg, initial encounter; D72.829 Elevated white blood cell count, unspecified; Z48.03 Encounter for change or removal of drains; B95.4 Other streptococcus as the cause of diseases classified elsewhere
CPT/HCPCS: 36415; 73590; 76882; 80053; 82803; 83605; 83735; 85025; 86140; 87040; 87070; 87186; 87205; 87635; 96365; 96366; 96372; A9270; G0378; G0379; J0696; J1650; S4990

== ENCOUNTER 2022-03-18 16:03 | Outpatient (CLI) | payer BC, SELFPAY ==
--- NOTE | 2022-03-18 16:30 | CRLHL7_ITS ---
For Patients: As a result of the Century Cures Act, medical imaging exams and procedure reports are released immediately into your electronic medical record. You may view this report before your referring provider. If you have questions, please contact your health care provider. INDICATION: Cellulitis of the tibia after trauma. COMPARISON: Plain film 15 March 2022. Ultrasound 16 March 2022. TECHNIQUE: Axial T1 and PD fat-sat, coronal T1, T2 and STIR and sagittal STIR sequences. FINDINGS: MRI marker in the proximal right tibia below the tibial tuberosity. Focal mild skin thickening and reticular underlying subcutaneous edema without organized fluid. No cortical or medullary signal abnormality. No evidence for foreign body or soft tissue gas. IMPRESSION: Cellulitis of the ventral proximal calf. Dictated by Thiago Mckeon MD @ 03/18/2022 6:33:00 PM (Electronically Signed)
== END 2022-03-18 16:04 | disposition home or self-care (01) ==
LOC: MRI 16:03
PROVIDERS: PCP Family Medicine; Visit Provider Family Medicine
DX: L03.115 Cellulitis of right lower limb (principal)
CPT/HCPCS: 73718

== ENCOUNTER 2022-03-20 13:48 | Outpatient (RCR) | payer BC, SELFPAY ==
[2022-03-13 07:58] VITALS: BP 116/75; PULSE 64; RESP 18; TEMP 36.8; O2SAT 98
[2022-03-13] MEDS: 0.9 % SODIUM CHLORIDE 250 ml IV (08:08)
[2022-03-13] MEDS: SODIUM CHLORIDE 0.9 % (FLUSH) 10 ML SYRINGE IVF ×3 (08:08→20:09)
--- NOTE | 2022-03-13 15:56 | PC.NURSE ---
Orders for Vanco renewed by Dr. Guevara in the ED today. Orders were faxed to pharmacy and given to the warehouse forklift operator. Patient will arrive at 8pm for evening dose and HS will determine if patient should go to ED or M/S. Dr. Ramírez is planning to see patient this evening.
[2022-03-13 20:23] VITALS: BP 111/64; PULSE 57; RESP 18; TEMP 36.9; O2SAT 97
[2022-03-13 22:28] VITALS: BP 103/64; PULSE 57; RESP 18; TEMP 37; O2SAT 96
[2022-03-14 08:15] VITALS: BP 116/75; PULSE 65; RESP 16; TEMP 36.8; O2SAT 100
[2022-03-14] MEDS: 0.9 % SODIUM CHLORIDE 250 ml IV ×2 (08:28→20:00)
[2022-03-14] MEDS: SODIUM CHLORIDE 0.9 % (FLUSH) 10 ML SYRINGE IVF (20:00)
[2022-03-14 20:35] VITALS: BP 108/68; PULSE 56; RESP 18; TEMP 37.1; O2SAT 99
--- NOTE | 2022-03-14 22:02 | PC.NURSE ---
Infusion note: Pt arrived at 1951, Vanco IV infused, pt tolerated infusion with no complains. Pt DC at 0 accompanied by his spouse
[2022-03-15 08:00] VITALS: BP 118/71; PULSE 71; RESP 18; TEMP 37.2; O2SAT 100
--- NOTE | 2022-03-15 10:41 | PC.NURSE ---
IV abx completed. VSS. Afebrile. All questions answered. Pt to return this evening for another antibiotic dose. IV in left AC, pt tolerating well.
[2022-03-15 17:00] VITALS: BP 114/74; PULSE 48; RESP 16; TEMP 37.3; O2SAT 98
[2022-03-15] MEDS: SODIUM CHLORIDE 0.9 % (FLUSH) 10 ML SYRINGE IVF (20:09)
--- NOTE | 2022-03-15 20:50 | PC.NURSE ---
Pt arrived for outpatient infusion. Pt states redness in leg is getting worse. pt states drainage from wound went from clear and thin to now thicker with a creamy, red, pink color. Upon meeting with doctor, pt is being admitted to the med/surg floor. Vancomycin infusion stopped and awaiting new orders from Dr. Burris.
[2022-03-17] MEDS: cefTRIAXone 2 GM in 0.9 % SODIUM CHLORIDE Mini-bag 100 ML IVPB (16:49)
[2022-03-17] MEDS: SODIUM CHLORIDE 0.9 % (FLUSH) 10 ML SYRINGE IVF (16:50)
[2022-03-17] MEDS: 0.9 % SODIUM CHLORIDE 250 ml IV (16:51)
[2022-03-17 17:15] VITALS: BP 113/74; PULSE 55; RESP 18; TEMP 36.8; O2SAT 99
[2022-03-17 17:53] VITALS: BP 106/65; PULSE 51; RESP 16; TEMP 36.7; O2SAT 100
--- NOTE | 2022-03-17 17:59 | PC.NURSE ---
Nursing Note: Pt arrived @1648 for outpatient abx infusion. Left AC IV leaking; IV DC'd with catheter intact. New IV site started in Right wrist #20 gauge, patent. Ceftriaxone infusion completed without complications. VSS and WNL; Afebrile. Right wrist IV DC'd after abx completion.
[2022-03-19 14:35] VITALS: BP 104/63; PULSE 73; RESP 16; TEMP 36.8; O2SAT 98
[2022-03-19] MEDS: cefTRIAXone 2 GM in 0.9 % SODIUM CHLORIDE Mini-bag 100 ML IVPB (15:01)
[2022-03-19] MEDS: SODIUM CHLORIDE 0.9 % (FLUSH) 10 ML SYRINGE IVF (15:03)
[2022-03-19] MEDS: 0.9 % SODIUM CHLORIDE 250 ml IV (15:03)
== END 2022-03-20 23:59 | disposition home or self-care (01) ==
LOC: CCIC 13:48
PROVIDERS: PCP Family Medicine; Visit Provider Family Medicine
DX: L03.115 Cellulitis of right lower limb (principal)
CPT/HCPCS: 80048; 85025; 86140; 96365; 96366; 99211; J0696; J3370; J7050

== ENCOUNTER 2022-03-24 15:00 | Outpatient (RCR) | payer BC, SELFPAY ==
[2022-03-20 13:57] VITALS: BP 120/69; PULSE 59; RESP 16; TEMP 36.6; O2SAT 98
[2022-03-20] MEDS: cefTRIAXone 2 GM in 0.9 % SODIUM CHLORIDE 100 ml 100 ML IVPB (14:30)
[2022-03-21 13:30] VITALS: BP 114/72; PULSE 52; RESP 16; TEMP 36.4; O2SAT 99
[2022-03-21] MEDS: 0.9 % SODIUM CHLORIDE 250 ml IV (13:50)
[2022-03-21] MEDS: cefTRIAXone 2 GM in 0.9 % SODIUM CHLORIDE Mini-bag 100 ML IVPB (13:50)
[2022-03-21] MEDS: SODIUM CHLORIDE 0.9 % (FLUSH) 10 ML SYRINGE IVF (13:50)
[2022-03-22 13:40] VITALS: BP 110/78; PULSE 70; RESP 16; TEMP 37.3; O2SAT 98
[2022-03-22] MEDS: cefTRIAXone 2 GM in 0.9 % SODIUM CHLORIDE Mini-bag 100 ML IVPB (13:47)
[2022-03-22] MEDS: 0.9 % SODIUM CHLORIDE 250 ml IV (13:48)
[2022-03-22] MEDS: SODIUM CHLORIDE 0.9 % (FLUSH) 10 ML SYRINGE IVF (13:48)
[2022-03-22 14:38] VITALS: BP 124/73; PULSE 55; RESP 16; TEMP 36.9; O2SAT 99
[2022-03-23 13:25] VITALS: BP 148/78; PULSE 49
[2022-03-23 13:26] VITALS: BP 124/75; PULSE 49
[2022-03-23] MEDS: cefTRIAXone 2 GM in 0.9 % SODIUM CHLORIDE Mini-bag 100 ML IVPB (13:31)
[2022-03-23 13:49] VITALS: BP 124/75; PULSE 49; RESP 20; TEMP 36.7; O2SAT 98
[2022-03-24 14:51] VITALS: BP 122/82; PULSE 58; RESP 16; TEMP 36.5; O2SAT 100
[2022-03-24] MEDS: cefTRIAXone 2 GM in 0.9 % SODIUM CHLORIDE Mini-bag 100 ML IVPB (15:03)
[2022-03-24] MEDS: SODIUM CHLORIDE 0.9 % (FLUSH) 10 ML SYRINGE IVF (15:03)
[2022-03-24] MEDS: 0.9 % SODIUM CHLORIDE 250 ml IV (15:03)
== END 2022-04-13 23:59 | disposition home or self-care (01) ==
LOC: CCIC 15:00
PROVIDERS: PCP Family Medicine; Visit Provider Family Medicine
DX: L03.115 Cellulitis of right lower limb (principal); L02.415 Cutaneous abscess of right lower limb
CPT/HCPCS: 96365; 99211; J0696; J7050

== ENCOUNTER 2022-03-27 09:22 | Outpatient (CLI) | payer BC, SELFPAY | END 2022-03-27 09:23 | disposition home or self-care (01) | LOC: WOUND 09:23 | PROVIDERS: PCP Family Medicine; Visit Provider Nurse Practitioner Family | DX: L97.215 Non-pressure chronic ulcer of right calf with muscle involvement without evidence of necrosis (principal); L03.115 Cellulitis of right lower limb | CPT/HCPCS: 11043; 99202 ==

== ENCOUNTER 2022-04-03 08:23 | Outpatient (CLI) | payer BC, SELFPAY | END 2022-04-03 08:24 | disposition home or self-care (01) | LOC: WOUND 08:23 | PROVIDERS: PCP Family Medicine; Visit Provider Nurse Practitioner Family | DX: L03.115 Cellulitis of right lower limb (principal) | CPT/HCPCS: 11042 ==

== ENCOUNTER 2022-04-10 08:23 | Outpatient (CLI) | payer BC, SELFPAY | END 2022-04-10 08:24 | disposition home or self-care (01) | LOC: WOUND 08:23 | PROVIDERS: PCP Family Medicine; Visit Provider Nurse Practitioner Family | DX: L03.115 Cellulitis of right lower limb (principal); L97.819 Non-pressure chronic ulcer of other part of right lower leg with unspecified severity | CPT/HCPCS: 11042 ==

== ENCOUNTER 2022-04-24 08:22 | Outpatient (CLI) | payer BC, SELFPAY | END 2022-04-24 08:23 | disposition home or self-care (01) | LOC: WOUND 08:22 | PROVIDERS: PCP Family Medicine; Visit Provider Nurse Practitioner Family | DX: L97.215 Non-pressure chronic ulcer of right calf with muscle involvement without evidence of necrosis (principal); L03.115 Cellulitis of right lower limb | CPT/HCPCS: 97597 ==

== ENCOUNTER 2022-05-08 08:24 | Outpatient (CLI) | payer BC, SELFPAY | END 2022-05-08 08:25 | disposition home or self-care (01) | LOC: WOUND 08:24 | PROVIDERS: PCP Family Medicine; Visit Provider Nurse Practitioner Family | DX: L97.215 Non-pressure chronic ulcer of right calf with muscle involvement without evidence of necrosis (principal); L03.115 Cellulitis of right lower limb | CPT/HCPCS: 97597 ==

== ENCOUNTER 2023-12-24 16:27 | Outpatient (CLI) | payer BC, SELFPAY ==
--- OUTSIDE RECORDS SUMMARY | 2023-12-24 16:32 | XMS_ITS | Clinical Summary ---
Author Name Unknown Organization [facility] Address [place], [place] [address] Care Team Providers Care Edm Operator Name Role Phone None Primary Care Provider Unavailabl e Allergies No known active allergies Medications Medication Sig Dispensed Refills Start Date End Date Status hydrocortisone -pramoxine 1%-1% RECTAL (PROCTOFOAM HC) rectal foam Insert rectally 3 times daily if needed for Rectal Pain/Itching. Use as needed. 1 Container 0 01/07/2011 Active omeprazole (PRILOSEC) 40 mg capsule Take 1 capsule by mouth once daily. 30 capsule 1 11/21/2011 Active Immunizations Name Administration Dates Next Due Tdap 01/11/2010 Social History Tobacco Use Types Packs/Day Years Used Date Smoking Tobacco: Every Day Cigarettes Alcohol Use Standard Drinks/Week Comments Yes 0 (1 standard drink = 0.6 oz pur e alcohol) Sex and Gender Information Value Date Recorded Sex Assigned at Not on file Gender Identity Not on file Sexual Orientation Not on file Obstetrics History Last Filed Vital Signs Vital Sign Reading Time Taken Comments Blood Pressure 123/78 11/21/2011 3:47 PM LINING LAYER Pulse 62 11/21/2011 3:47 PM LINING LAYER Temperature 36.6 ??C (97.9 ??F) 11/21/2011 3:47 PM CS T Respiratory Rate 18 07/13/2007 6:15 AM CDT Oxygen Saturation 99% 07/13/2007 6:15 AM CDT Inhaled Oxygen Concentration - - Weight 68.5 kg (151 lb) 11/21/2011 3:47 PM LINING LAYER Height - - Body Mass Index - - Plan of Treatment Health Maintenance Due Date Last Done Comments Depression screening for age 12+ 1995 HIV for age 15-65 11/23/1998 BMI (ht and wt on same day) for age 18+ 11/23/2001 Hepatitis C screening for ag e 18-79 11/23/2001 Lipids for age 35-44 11/23/2018 Tetanus booster 01/12/2020 01/11/2010 COVID-19 vaccine series (2022- season) 2023 Influenza for age 9-49 05/15/2024 Tdap Completed 01/11/2010 Pneumococcal series for age 6-64 Aged Out No longer eligible based on patient's age to complete this topic Care Teams Edm Operator Relationship Specialty Start Date End Date None . PCP - General 07/13/07
--- OUTSIDE RECORDS SUMMARY | 2023-12-24 16:32 | XMS_ITS ---
Author Name Unknown Organization [facility] Address [address] [place] [address] Care Team Providers Care Certified Registered Locksmith Name Role Phone Unavailable Unavailable Unavailable Surgery Details Not on file Complications Check Surgery Details section. Procedure Estimated Blood Loss Check Surgery Details section. Procedure Findings Check Surgery Details section. Procedure Specimens Taken Check Surgery Details section.
--- OUTSIDE RECORDS SUMMARY | 2023-12-24 16:32 | XMS_ITS | Clinical Summary ---
Author Name Unknown Organization [facility] Address [address] [place] [address] Care Team Providers Care Lens Generating Machine Tender Name Role Phone Elsewhere, Pcp Primary Care Provider Unavailabl e Source Comments Patient records contain information from all sites at [facility]. For routine questions regarding patient records, call [phone] during business hours, M-F 8:00 AM - 5:00 PM Central Time. Record requests for emergency care only can be directed to [phone] at any time.[facility] Social History Tobacco Use Types Packs/Day Years Used Date Smoking Tobacco: Every Day Cigarettes 1 Nutrition Answer Date Recorded Nutrition: EVOO Fat Source Unknown 03/11 Nutrition: Servings of Fruits/Vegetables per Day Not on file 03/11/2022 Dental Answer Date Recorded Dental: Regular Dentist Unknown 03/11/20 Sex and Gender Information Value Date Recorded Sex Assigned at Not on file Gender Identity Not on file Sexual Orientation Not on file Last Filed Vital Signs Vital Sign Reading Time Taken Comments Blood Pressure 119/82 03/11/2022 6:39 PM CDT Pulse 88 03/11/2022 6:39 PM CDT Temperature 36.8 ??C (98.2 ??F) 03/11/2022 6:39 PM CD T Respiratory Rate 16 03/11/2022 6:39 PM CDT Oxygen Saturation 100% 03/11/2022 6:39 PM CDT Inhaled Oxygen Concentration - - Weight 73 kg (160 lb 15 oz) 03/11/2022 6:40 PM C DT Height - - Body Mass Index - - Plan of Treatment Not on file Care Teams Lens Generating Machine Tender Relationship Specialty Start Date End Date Elsewhere, Pcp PCP - General 03/26/22
--- OUTSIDE RECORDS SUMMARY | 2023-12-24 16:32 | XMS_ITS | Referral Summary ---
Author Name Unknown Organization [facility] Address [address] [place] [address] Care Team Providers Care Lead Quality Technician Name Role Phone Elsewhere, Pcp Primary Care Provider Unavailabl e Source Comments Patient records contain information from all sites at [facility]. For routine questions regarding patient records, call [phone] during business hours, M-F 8:00 AM - 5:00 PM Central Time. Record requests for emergency care only can be directed to [phone] at any time.[facility] Social History Tobacco Use Types Packs/Day [...] of Treatment Not on file Care Teams Lead Quality Technician Relationship Specialty Start Date End Date Elsewhere, Pcp PCP - General 03/26/22
== END 2023-12-24 16:28 | disposition home or self-care (01) ==
PROVIDERS: PCP Family Medicine; Visit Provider Family Medicine
DX: R80.9 Proteinuria, unspecified (principal); Z13.1 Encounter for screening for diabetes mellitus; Z13.220 Encounter for screening for lipoid disorders
CPT/HCPCS: 80061; 82947; 87086

== ENCOUNTER 2024-02-19 16:31 | Outpatient (CLI) | payer BC, SELFPAY ==
--- OUTSIDE RECORDS SUMMARY | 2024-02-19 16:34 | XMS_ITS | Clinical Summary ---
Author Organization [facility] Address [place], [place] [address] Care Team Providers Care Driving School Instructor Name Role Phone None Primary Care Provider [...] Comments Blood Pressure 123/78 11/21/2011 3:47 PM BRICK EXTRUDER OPERATOR Pulse 62 11/21/2011 3:47 PM BRICK EXTRUDER OPERATOR Temperature 36.6 ??C (97.9 ??F) 11/21/2011 3:47 PM CS T Respiratory Rate 18 07/13/2007 6:15 AM CDT Oxygen Saturation 99% 07/13/2007 6:15 AM CDT Inhaled Oxygen Concentration - - Weight 68.5 kg (151 lb) 11/21/2011 3:47 PM BRICK EXTRUDER OPERATOR Height - - Body Mass Index - - Plan of Treatment Health Maintenance Due Date Last Done Comments Depression screening for age 12+ 1995 HIV for age 15-65 11/23/1998 BMI (ht and wt on same day) for age 18+ 11/23/2001 Hepatitis C screening for ag e 18-79 11/23/2001 Lipids for age 35-44 11/23/2018 Tetanus booster 01/12/2020 01/11/2010 COVID-19 vaccine series (2022-24 season) 2023 Influenza for age 9-49 05/15/2024 Tdap Completed 01/11/2010 Pneumococcal series for age 6-64 Aged Out No longer eligible based on patient's age to complete this topic Care Teams Driving School Instructor Relationship Specialty Start Date End Date None . PCP - General 07/13/07
--- OUTSIDE RECORDS SUMMARY | 2024-02-19 16:34 | XMS_ITS ---
Author Organization [facility] Address [address] [place] [address] Care Team Providers Care Coffee Plantation Worker Name Role Phone Unavailable Unavailable Unavailable Surgery Details Not on file Complications Check Surgery Details section. Procedure Estimated Blood Loss Check Surgery Details section. Procedure Findings Check Surgery Details section. Procedure Specimens Taken Check Surgery Details section.
--- OUTSIDE RECORDS SUMMARY | 2024-02-19 16:34 | XMS_ITS | Referral Summary ---
Author Organization [facility] Address [address] [place] [address] Care Team Providers Care Proced Tech Name Role Phone Elsewhere, Pcp Primary Care Provider Unavailabl e Source Comments Patient records contain information from all sites at [facility]. For routine questions regarding patient records, call [phone] during business hours, M-F 8:00 AM - 5:00 PM Central Time. Record requests for emergency care only can be directed to [phone] at any time.[facility] Social History Tobacco Use Types Packs/Day Years Used Date Smoking Tobacco: Every Day Cigarettes Nutrition Answer Date Recorded Nutrition: EVOO Fat [...] of Treatment Not on file Care Teams Proced Tech Relationship Specialty Start Date End Date Elsewhere, Pcp PCP - General 03/26/22
--- OUTSIDE RECORDS SUMMARY | 2024-02-19 16:34 | XMS_ITS | Clinical Summary ---
Author Organization [facility] Address [address] [place] [address] Care Team Providers Care Invoice Classification Clerk Name Role Phone Elsewhere, Pcp Primary Care Provider Unavailabl e Source Comments Patient records contain information from all sites at [facility]. For routine questions regarding patient records, call [phone] during business hours, M-F 8:00 AM - 5:00 PM Central Time. Record requests for emergency care only can be directed to [phone] at any time.[facility] Social History Tobacco Use Types Packs/Day Years [...] of Treatment Not on file Care Teams Invoice Classification Clerk Relationship Specialty Start Date End Date Elsewhere, Pcp PCP - General 03/26/22
--- OUTSIDE RECORDS SUMMARY | 2024-02-19 16:34 | XMS_ITS | Continuity of Care Document ---
Author Organization [facility] Address [address] [place] [address] Care Team Providers Care Malted Milk Supervisor Name Role Phone RICHARD LAMB Primary Care Provider [phone] RICHARD LAMB Referring Provider Assessment No assessment recorded. Plan of Treatment Reminders Order Date Submit Date Provider Last Modified By Organization Details Last Modified Time Details Appointments None recorded. Lab urinalysi s, dipstick 2023 024 [email or web address] [facility], [address] [place] [address] [address], [place], [address], 4 16:11:41 Referral None recorded. Procedures None recorded. Surgeries None recorded. Imaging CT, abdomen + pelvis, w/wo contrast 2023 024 [facility], [address] [place], [address], 4 07:55:15 Medication Orders None recorded. Patient TargetsNo targets recorded. Patient InstructionsNo instructions recorded. Reason for Referral None Reported. Results Created Date Observation Date Name Description Value Unit Range Abnormal Flag LastModifiedBy Organization Detail LastModifiedTime 02/09/2002/09/2024 urina lysis , dipst ick BLOOD Negati ve Not Available [facility] [address], [place], [address], 02/09/2024 16:09:17 02/09/20 24 02/09/2024 urina lysis , dipst ick BILIRUBIN Negati ve Not Available [facility] [address], [place], [address], 02/09/2024 16:09:17 02/09/20 24 02/09/2024 urina lysis , dipst ick UROBILINOGEN 0.2 mg/dL (Norm) Not Available [facility] [address], [place], [address], 02/09/2024 16:09:17 02/09/20 24 02/09/2024 urina lysis , dipst ick KETONES Negati ve Not Available [facility] [address], [place], [address], 02/09/2024 16:09:17 02/09/20 24 02/09/2024 urina lysis , dipst ick PROTEIN Negati ve Not Available [facility] [address], [place], [address], 02/09/2024 16:09:17 02/09/20 24 02/09/2024 urina lysis , dipst ick NITRITES Negati ve Not Available [address], [place], [address], 02/09/2024 16:09:17 02/09/20 24 02/09/2024 urina lysis , dipst ick GLUCOSE Negati ve Not Available [facility] [address], [place], [address], 02/09/2024 16:09:17 02/09/20 24 02/09/2024 urina lysis , dipst ick p.H. 5.0 Not Available [place] [address], [place], [address], 02/09/2024 16:09:17 02/09/20 24 02/09/2024 urina lysis , dipst ick S.G. (Specific Chapman) 1.020 Not Available [facility] [address], [place], [address], 02/09/2024 16:09:17 02/09/20 24 02/09/2024 urina lysis , dipst ick LEUKOCYTES Negati ve Not Available [facility] [address], [place], [address], 02/09/2024 16:09:17 Result Notes None recorded. Procedures Surgical History Date Name Laterality Status Provider Name and Address Organization Details Recorded Time 02/09/2024 Cystoscopy - male completed Bang Espinal MD [address] [facility],[address], [place], [address], [facility] 02/09/2024 18:36:23 Imaging Results None recorded. Procedure Notes None recorded. Medical Equipment None Reported. Allergies No known drug allergies Medications Not known to be on any medication Vitals Date Recorded Body mass index (BMI) Body height Body weight Provider Name and Address Organization Details Last Updated DateTime 02/09/2024 21.4 kg/m2 182.88 cm 40788.5488 102211 g Not Available Health Note 02/09/2024 08:16:16 Social History Question Answer Notes LastModified by Organizat ion Details LastModified Time Tobacco Smoking Status Current Every Day Smoker Not Available Health Note 02/08/2024 22:40:45 What Is Your Level Of Alcohol Consumption? Occasional [email or web address] Information not available 02/08/2024 What Is Your Level Of Caffeine Consumption? None [email or web address] Information not available 02/08/2024 How Much Tobacco Do You Chew? None [email or web address] Information not available 02/08/2024 Do You Or Have You Ever Used E-cigarettes Or Vape? Former User Of Electronic Cigarettes [email or web address] Information not available 02/08/2024 What Was The Date Of Your Most Recent Tobacco Screening? 02/09/2024 [email or web address] Information not available 02/08/2024 What Is Your Relationship Status? Single [email or web address] Information not available 02/08/2024 Are You Sexually Active? Yes [email or web address] Information not available 02/08/2024 Do You Or Have You Ever Used Smokeless Tobacco? Never Used Smokeless Tobacco [email or web address] Information not available 02/08/2024 How Much Tobacco Do You Smoke? 1 PPD [email or web address] Information not available 02/08/2024 Do You Use Any Illicit Or Recreational Drugs? Yes [email or web address] Information not available 02/08/2024 How Many Years Have You Smoked Tobacco? 18 [email or web address] Information not available 02/08/2024 How Many Days In The Past Year Have You Consumed 5 Or More Drinks? 10 [email or web address] Information no t available 02/08/2024 Sex: Male Functional Status None recorded. Mental Status None recorded. Family History Relationship Description Onset Age of this Age Resolved Age Notes Maternal Grandmother Family history of breast cancer Maternal Grandmother Family history of cancer Paternal Grandmother Family history of breast cancer Paternal Grandmother Family history of cancer Father Family history of cancer Medical History Condition Response High Blood Pressure N Kidney Stones Y Depression N Lung Disease N GERD/Acid Reflux N Sexually Transmitted Infection Y Diabetes N Bleeding Disorder N Cancer N High Cholesterol N Heart Disease N Immunizations Vaccine Type Date Status Provider Name and Address Organization Details Recorded Time influenza, unspecified formulation 08/03/2021 completed Not Available Health Note 02/08/2024 22:40:47 Past Encounters Encounter ID Performer Location Encounter Start Date Encounter Closed Date Diagnosis/Indication Diagnosis SNOMED-CT Code [id number] Bang Espinal MD [facility] [address] [place] [address] [place] [address] 02/09/2024 08:16:10 02/10/2024 07:32:41 Microscopic hematuria [id number] Health Concerns Section Related Observation LastModified by Organization Detai ls LastModified Time None Recorded Concern Status LastModified by Organization Details LastModified Time None Recorded Payers Encounter Date Sequence Insurance Name Policy Number Policy Plata Covered Member ID Plata Member ID Guarantor Name 02/09/2024 1 [place] [id number] Luis Enrique Hutchison [id number] Luis Enrique Hutchison Notes Date Note Type Note Provider Name and Address Organization Details Recorded Time 02/09/2024 text/html HPI Notes: Chief complaint: Blood in 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 Confirmed on repeat testing. Here for complete evaluations. Denies burning pain fever chills history of infection,. History of kidney stone greater than 10 years ago. Hematuria: Began: 9 Weeks ago Associated symptoms: OTHER Bang Espinal MD [address] [facility] [facility],[address], [place], [address], [facility] 02/09/2024 18:36:54
--- OUTSIDE RECORDS SUMMARY | 2024-02-19 16:34 | XMS_ITS | Data Portability ---
Author Organization [facility] Address [address] [place] [address] Care Team Providers Care Cementer Oil Well Name Role Phone RICHARD LAMB Primary Care Provider RICHRAD LAMB Referring Provider Assessment No assessment recorded. Plan of Treatment Reminders Order Date Submit Date Provider Last Modified By Organization Details Last Modified Time Details Appointments None recorded. Lab urinalysi s, dipstick 2023 024 [email or web address] [facility], [address], [place], [address], 16:11:41 Referral None recorded. Procedures None recorded. Surgeries None recorded. Imaging CT, abdomen + pelvis, w/wo contrast 2023 024 [facility], [address] [place], [address], 4 07:55:15 Medication Orders None recorded. Patient TargetsNo targets recorded. Patient InstructionsNo instructions recorded. Reason for Referral None Reported. Results Created Date Observation Date Name Description Value Unit Range Abnormal Flag LastModifiedBy Organization Detail LastModifiedTime 02/09/2002/09/2024 urina lysis , dipst ick BLOOD Negati ve Not Available [facility] [address], [place], [address], 02/09/2024 16:09:17 02/09/2002/09/2024 urina lysis , dipst ick BILIRUBIN Negati ve Not Available [facility] [address], [place], [address], 02/09/2024 16:09:17 02/09/20 24 02/09/2024 urina lysis , dipst ick UROBILINOGEN 0.2 mg/dL (Norm) Not Available [place] [address], [place], [address], 02/09/2024 16:09:17 02/09/20 24 02/09/2024 urina lysis , dipst ick KETONES Negati ve Not Available [place] [address], [place], [address], 02/09/2024 16:09:17 02/09/20 24 02/09/2024 urina lysis , dipst ick PROTEIN Negati ve Not Available [place] [address], [place], [address], 02/09/2024 16:09:17 02/09/20 24 02/09/2024 urina lysis , dipst ick NITRITES Negati ve Not Available [place] [address], [place], [address], 02/09/2024 16:09:17 02/09/20 24 02/09/2024 urina lysis , dipst ick GLUCOSE Negati ve Not Available [place] [address], [place], [address], 02/09/2024 16:09:17 02/09/20 24 02/09/2024 urina lysis , dipst ick p.H. 5.0 Not Available [place] [address], [place], [address], 02/09/2024 16:09:17 02/09/20 24 02/09/2024 urina lysis , dipst ick S.G. (Specific [place]) 1.020 Not Available [facility] [address], [place], [address], 02/09/2024 16:09:17 02/09/20 24 02/09/2024 urina lysis , dipst ick LEUKOCYTES Negati ve Not Available [facility] [address], [place], [address], 02/09/2024 16:09:17 Result Notes None recorded. Procedures Surgical History Date Name Laterality Status Provider Name and Address Organization Details Recorded Time 02/09/2024 Cystoscopy - male completed Bang Espinal MD [address] [facility], [address], [facility] 02/09/2024 18:36:23 Imaging Results None recorded. Procedure Notes None recorded. Medical Equipment None Reported. Allergies No known drug allergies Medications Not known to be on any medication Vitals Date Recorded Body mass index (BMI) Body height Body weight Provider Name and Address Organization Details Last Updated DateTime 02/09/2024 21.4 kg/m2 182.88 cm 09691.6367 224841 g Not Available Health Note 02/09/2024 08:16:16 [...] history of cancer Medical History Condition Response Diabetes N Sexually Transmitted Infection Y Bleeding Disorder N High Blood Pressure N Kidney Stones Y Cancer N Lung Disease N Depression N High Cholesterol N GERD/Acid Reflux N Heart Disease N Immunizations Vaccine Type Date Status Provider Name and Address Organization Details Recorded Time influenza, unspecified formulation 08/03/2021 completed Not Available Health Note 02/08/2024 22:40:47 Past Encounters Encounter ID Performer Location Encounter Start Date Encounter Closed Date Diagnosis/Indication Diagnosis SNOMED-CT Code [id number] Bang Espinal MD [facility] [address] [place] [address] [place] [address] 02/09/2024 08:16:10 02/10/2024 07:32:41 Microscopic hematuria [id number] Health Concerns Section Related Observation LastModified by Organization Detai ls LastModified Time None Recorded Concern Status LastModified by Organization Details LastModified Time None Recorded Advance Directives Directive None Recorded Payers Encounter Date Sequence Insurance Name Policy Number Policy Plata Covered Member ID Plata Member ID Guarantor Name 02/09/2024 1 [place] [id number] Luis Enrique Hutchison [id number] Luis Enrique Hutchison Notes Date Note Type [...] Associated symptoms: OTHER Bang Espinal MD [address] [facility],[address], [place], [address], [facility] 02/09/2024 18:36:54
--- NOTE | 2024-02-19 16:45 | CRLHL7_ITS ---
For Patients: As a result of the Century Cures Act, medical imaging exams and procedure reports are released immediately into your electronic medical record. You may view this report before your referring provider. If you have questions, please contact your health care provider. INDICATION: Microscopic hematuria. COMPARISON: None. Technique : CT urogram. Findings: No abnormal intra pulmonary nodular densities through the lung bases. No evidence of pleural effusion. Normal size cardiac silhouette without any pericardial effusion. No focal hepatic or splenic pathology. No pancreatic pathology. No kidney stones or obstructive uropathy. Incomplete rotation right kidney ; normal variant. The visualized renal collecting system, the ureters and the urinary bladder are unremarkable. No retroperitoneal lymphadenopathy. No evidence of abdominal pelvic ascites. Normal appendix. A 5 x 4.6 x 3.1 cm soft tissue mass in the right pelvis adjacent to the rectum and inseparable from the rectum. There is some enhancement of this mass postcontrast administration. No obvious pelvic lymphadenopathy. IMPRESSION: 1. Negative CT urogram. 2. A 5 x 4.6 x 3.1 cm soft tissue mass in the pelvis inseparable from the rectum; suggest obtaining an MRI of the pelvis for further assessment. Please note that all CT scans at this facility use dose modulation, iterative reconstruction, and/or weight-based dosing when appropriate to reduce radiation dose to as low as reasonably achievable. Dictated by Mike Shine MD @ 02/21/2024 5:54:57 PM (Electronically Signed)
== END 2024-02-19 16:32 | disposition home or self-care (01) ==
LOC: CT 16:32
PROVIDERS: PCP Family Medicine; Visit Provider Urology
DX: R31.29 Other microscopic hematuria (principal)
CPT/HCPCS: 74178; Q9967

== ENCOUNTER 2024-03-07 17:59 | Outpatient (CLI) | payer BC, SELFPAY ==
--- OUTSIDE RECORDS SUMMARY | 2024-03-07 18:02 | XMS_ITS | Continuity of Care Document ---
Author Organization [facility], [facility] Address [address] [place] [address] Care Team Providers Care Dam Attendant Name Role Phone RICHARD LAMB Primary Care Provider [phone] RICHARD LAMB Referring Provider [phone] Assessment No assessment recorded. Plan of Treatment Reminders Order Date Submit Date Provider Last Modified By Organization Details Last Modified Time Details Appointments None recorded. Lab urinalysis , dipstick 2023 024 [email or web address] 6 [facility], [address] [place], [place] [address], [place], [address], 16:11:41 Referral None recorded. Procedures None recorded. Surgeries None recorded. Imaging CT, abdomen + pelvis, w/wo contrast 2023 024 [facility], [address] [place], [address], 4 10:21:57 Medication Orders None recorded. Patient TargetsNo targets recorded. Patient InstructionsNo instructions recorded. Reason for Referral None Reported. Results Created Date Observation Date Name Description Value Unit Range Abnormal Flag LastModifiedBy Organization Detail LastModifiedTime 02/09/2002/09/2024 urina lysis , dipst ick BLOOD Negati ve Not Available [facility] [address], [place], [address], 02/09/2024 16:09:17 02/09/20 24 02/09/2024 urina lysis , dipst ick BILIRUBIN Negati ve Not Available [place] [address], [place], [address], 02/09/2024 16:09:17 02/09/20 24 02/09/2024 urina lysis , dipst ick UROBILINOGEN 0.2 mg/dL (Norm) Not Available [address], [place], [address], 02/09/2024 16:09:17 02/09/20 24 02/09/2024 urina lysis , dipst ick KETONES Negati ve Not Available [address], [place], [address], 02/09/2024 16:09:17 02/09/20 24 02/09/2024 urina lysis , dipst ick PROTEIN Negati ve Not Available [place] [address], [place], [address], 02/09/2024 16:09:17 02/09/20 24 02/09/2024 urina lysis , dipst ick NITRITES Negati ve Not Available [place] [address], [place], [address], 02/09/2024 16:09:17 02/09/20 24 02/09/2024 urina lysis , dipst ick GLUCOSE Negati ve Not Available [place] [address], [place], [address], 02/09/2024 16:09:17 02/09/20 24 02/09/2024 urina lysis , dipst ick p.H. 5.0 Not Available [place] [address], [place], [address], 02/09/2024 16:09:17 02/09/20 24 02/09/2024 urina lysis , dipst ick S.G. (Specific [place]) 1.020 Not Available [facility] [address], [place], [address], 02/09/2024 16:09:17 02/09/20 24 02/09/2024 urina lysis , dipst ick LEUKOCYTES Negati ve Not Available [facility] [address], [place], [address], 02/09/2024 16:09:17 02/22/20 24 02/19/2024 CT, abdom en + pelvi s, w/wo contr ast No observ ation record ed. [facility] [address] [place], [address], 02/23/2024 05:52:39 Result Notes None recorded. Procedures Surgical History Date Name Laterality Status Provider Name and Address Organization Details Recorded Time 02/09/2024 Cystoscopy - male completed Bang Espinal MD [address] [facility],[address], [place], [address], [facility] 02/09/2024 18:36:23 Imaging Results None recorded. Procedure Notes None recorded. Medical Equipment None Reported. Allergies No known drug allergies Medications Not known to be on any medication Vitals Date Recorded Body mass index (BMI) Body height Body weight Provider Name and Address Organization Details Last Updated DateTime 02/09/2024 21.4 kg/m2 182.88 cm 95287.6796 770801 g Not Available Health Note 02/09/2024 08:16:16 [...] [id number] Information no t available 02/08/2024 Sex: Unknown Functional Status None recorded. Mental Status None recorded. Family History Relationship Description Onset Age of this Age Resolved Age Notes Maternal Grandmother Family history of breast cancer Maternal Grandmother Family history of malignant neoplasm Paternal Grandmother Family history of breast cancer Paternal Grandmother Family history of malignant neoplasm Father Family history of malignant neoplasm Medical History Condition Response High Blood Pressure N Kidney Stones Y Depression N Lung Disease N GERD/Acid Reflux N Diabetes N Sexually Transmitted Infection Y Bleeding Disorder N Cancer N High Cholesterol N Heart Disease N Immunizations Vaccine Type Date Status Provider Name and Address Organization Details Recorded Time influenza, unspecified formulation 08/03/2021 completed Not Available Health Note 02/08/2024 22:40:47 Past Encounters Encounter ID Performer Location Encounter Start Date Encounter Closed Date Diagnosis/Indication Diagnosis SNOMED-CT Code [id number] Bang Espinal MD [facility] [address] [place] [address] 02/09/2024 08:16:10 02/10/2024 07:32:41 Microscopic hematuria [id number] Health Concerns Section Related Observation LastModified by Organization Detai ls LastModified Time None Recorded Concern Status LastModified by Organization Details LastModified Time None Recorded Payers Encounter Date Sequence Insurance Name Policy Number Policy Plata Covered Member ID Plata Member ID Guarantor Name 02/09/2024 1 [place] [id number] Luis Enrique Hutchison [id number] Luis Enrique Hutchison Notes Date Note Type [...] Associated symptoms: OTHER Bang Espinal MD [address] [facility],[address], [place], [address], [facility] 02/09/2024 18:36:54
--- OUTSIDE RECORDS SUMMARY | 2024-03-07 18:02 | XMS_ITS | Clinical Summary ---
Author Organization [facility] Address [address] [place] [address] Care Team Providers Care Auto Driver Name Role Phone Elsewhere, Pcp Primary Care Provider Unavailabl e Source Comments Patient records contain information from all sites at [facility]. For routine questions regarding patient records, call [phone] during business hours, M-F 8:00 AM - 5:00 PM Central Time. Record requests for emergency care only can be directed to [phone] at any time.[facility] Social History Tobacco Use Types Packs/Day Years [...] of Treatment Not on file Care Teams Auto Driver Relationship Specialty Start Date End Date Elsewhere, Pcp PCP - General 03/26/22
--- OUTSIDE RECORDS SUMMARY | 2024-03-07 18:02 | XMS_ITS ---
Author Organization [facility] Address [address] [place] [address] Care Team Providers Care Cosmetology Teacher Name Role Phone Unavailable Unavailable Unavailable Surgery Details Not on file Complications Check Surgery Details section. Procedure Estimated Blood Loss Check Surgery Details section. Procedure Findings Check Surgery Details section. Procedure Specimens Taken Check Surgery Details section.
--- OUTSIDE RECORDS SUMMARY | 2024-03-07 18:02 | XMS_ITS | Clinical Summary ---
Author Organization [facility] Address [place], [place] [address] Care Team Providers Care Printing Plate Maker Name Role Phone None Primary Care Provider [...] Comments Blood Pressure 123/78 11/21/2011 3:47 PM MEDIA TECHNICIAN Pulse 62 11/21/2011 3:47 PM MEDIA TECHNICIAN Temperature 36.6 ??C (97.9 ??F) 11/21/2011 3:47 PM CS T Respiratory Rate 18 07/13/2007 6:15 AM CDT Oxygen Saturation 99% 07/13/2007 6:15 AM CDT Inhaled Oxygen Concentration - - Weight 68.5 kg (151 lb) 11/21/2011 3:47 PM MEDIA TECHNICIAN Height - - Body Mass Index - [...] age to complete this topic Care Teams Printing Plate Maker Relationship Specialty Start Date End Date None . PCP - General 07/13/07
--- OUTSIDE RECORDS SUMMARY | 2024-03-07 18:02 | XMS_ITS | Data Portability ---
Author Organization [facility] Address [address] [facility] [address] [place] [address] Care Team Providers Care Smoking Pipe Liner Name Role Phone RICHARD LAMB Primary Care Provider RICHARD LAMB Referring Provider [phone] Assessment No assessment recorded. Plan of Treatment Reminders Order Date Submit Date Provider Last Modified By Organization Details Last Modified Time Details Appointments None recorded. Lab urinalysis , dipstick 2023 024 [email or web address] 6 [facility], [facility], [place], [address], 16:11:41 Referral None recorded. Procedures None recorded. Surgeries None recorded. Imaging CT, abdomen + pelvis, w/wo contrast 2023 024 [facility], [address] [place], [address], 4 10:21:57 Medication Orders None recorded. Patient TargetsNo targets recorded. Patient InstructionsNo instructions recorded. Reason for Referral None Reported. Results Created Date Observation Date Name Description Value Unit Range Abnormal Flag LastModifiedBy Organization Detail LastModifiedTime 02/09/2002/09/2024 urina lysis , dipst ick BLOOD Negati ve Not Available [facility] [address], [place], [address], 02/09/2024 16:09:17 02/09/20 24 02/09/2024 urina lysis , dipst ick BILIRUBIN Negati ve Not Available [place] [address], [place], [address], 02/09/2024 16:09:17 02/09/20 24 02/09/2024 urina lysis , dipst ick UROBILINOGEN 0.2 mg/dL (Norm) Not Available [place] [address], [place], [address], 02/09/2024 16:09:17 02/09/20 24 02/09/2024 urina lysis , dipst ick KETONES Negati ve Not Available [place] [address], [place], [address], 02/09/2024 16:09:17 02/09/20 24 02/09/2024 urina lysis , dipst ick PROTEIN Negati ve Not Available [place] [address], [place], [address], 02/09/2024 16:09:17 02/09/20 24 02/09/2024 urina lysis , dipst ick NITRITES Negati ve Not Available [address], [place], [address], 02/09/2024 16:09:17 02/09/20 24 02/09/2024 urina lysis , dipst ick GLUCOSE Negati ve Not Available [place] [address], [place], [address], 02/09/2024 16:09:17 02/09/20 24 02/09/2024 urina lysis , dipst ick p.H. 5.0 Not Available [place] [address], [place], [address], 02/09/2024 16:09:17 02/09/20 24 02/09/2024 urina lysis , dipst ick S.G. (Specific [place]) 1.020 Not Available [facility] [address], [place], [address], 02/09/2024 16:09:17 02/09/20 24 02/09/2024 urina lysis , dipst ick LEUKOCYTES Negati ve Not Available [facility] [address], [place], [address], 02/09/2024 16:09:17 02/22/20 24 02/19/2024 CT, abdom en + pelvi s, w/wo contr ast No observ ation record ed. [facility] [address] [place], [address], 02/23/2024 05:52:39 Result Notes None recorded. Procedures Surgical History Date Name Laterality Status Provider Name and Address Organization Details Recorded Time 02/09/2024 Cystoscopy - male completed Bang Espinal MD [address] [facility],[address], [place], [address], [facility] 02/09/2024 18:36:23 Imaging Results Imaging Date Name Status LastModified by Organiz ation Details LastModified Time 02/19/2024 CT, abdomen + pelvis, w/wo contrast completed [facility] [address] [place], [address], 02/23/2024 05:52:39 Procedure Notes None recorded. Medical Equipment None Reported. Allergies No known drug allergies Medications Not known to be on any medication Vitals Date Recorded Body mass index (BMI) Body height Body weight Provider Name and Address Organization Details Last Updated DateTime 02/09/2024 21.4 kg/m2 182.88 cm 25685.5999 752439 g Not Available Health Note 02/09/2024 08:16:16 [...] of malignant neoplasm Medical History Condition Response Sexually Transmitted Infection Y Diabetes N Bleeding Disorder N High Blood Pressure N [...] Encounter Closed Date Diagnosis/Indication Diagnosis SNOMED-CT Code [id number] Bang Espinal MD [facility] [address] [address] 02/09/2024 08:16:10 02/10/2024 07:32:41 Microscopic hematuria [id number] Health Concerns Section Related Observation LastModified by Organization Detai ls LastModified Time None Recorded Concern Status LastModified by Organization Details LastModified Time None Recorded Advance Directives Directive None Recorded Payers Encounter Date Sequence Insurance Name Policy Number Policy Plata Covered Member ID Plata Member ID Guarantor Name 02/09/2024 1 [place] [id number] Luis Enrique Hutchison [id number] Luis Enrique Hutchison Notes Date Note Type [...] ago Associated symptoms: OTHER Bang Espinal MD [address] [facility],[address], [place], [address], [facility] 02/09/2024 18:36:54
--- OUTSIDE RECORDS SUMMARY | 2024-03-07 18:02 | XMS_ITS | Referral Summary ---
Author Organization [facility] Address [address] [place] [address] Care Team Providers Care Electric Organ Inspector And Repairer Name Role Phone Elsewhere, Pcp Primary Care Provider Unavailabl e Source Comments Patient records contain information from all sites at [facility]. For routine questions regarding patient records, call [phone] during business hours, M-F 8:00 AM - 5:00 PM Central Time. Record requests for emergency care only can be directed to [phone] at any time.[facility] Social History Tobacco Use Types Packs/Day [...] of Treatment Not on file Care Teams Electric Organ Inspector And Repairer Relationship Specialty Start Date End Date Elsewhere, Pcp PCP - General 03/26/22
--- NOTE | 2024-03-07 18:15 | CRLHL7_ITS ---
For Patients: As a result of the Century Cures Act, medical imaging exams and procedure reports are released immediately into your electronic medical record. You may view this report before your referring provider. If you have questions, please contact your health care provider. INDICATION: 5.0 x 4.6 x 3.1 cm pelvic soft tissue mass, inseparable from the rectum TECHNIQUE: Multiplanar imaging of the pelvis was performed without and with 15 cc of Dotarem contrast material IV. COMPARISON: CT urogram 02/19/2024 FINDINGS: Situated between the right posterolateral rectum and the coccyx is a circumscribed 4.8 x 4.0 x 3.2 cm mass containing mixed signal. This lesion is not believed to be arising from the rectum but merely displacing it. There appears to be a small cystic component along the inferior margin of this lesion. Along its anterolateral margin is a small component which hyperintense on T1-weighted images and hypointense on T2-weighted images. Prior to contrast administration, the bulk of this mass is mildly hyperintense with respect to muscle. Post IV contrast administration, there is no appreciable enhancement of this lesion. No marrow signal abnormality in the adjacent coccyx is noted. No other mass or lymphadenopathy is apparent. Apart from being displaced by this mass, the rectum is unremarkable. Hydroceles are demonstrated bilaterally, greater on the left. The exam is otherwise negative. IMPRESSION: 1. Nonspecific, circumscribed 4.8 x 4.0 x 3.2 cm precoccygeal mass with small cystic component, as above, displacing the rectum anterolaterally to the left. 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 Six-month follow up scan or CT-guided biopsy recommended. 2. Bilateral hydroceles, greater on the left. Dictated by Ulisses Cespedes MD @ 03/08/2024 7:59:40 AM (Electronically Signed)
== END 2024-03-07 18:00 | disposition home or self-care (01) ==
PROVIDERS: PCP Family Medicine; Visit Provider Urology
DX: R19.00 Intra-abdominal and pelvic swelling, mass and lump, unspecified site (principal); N43.3 Hydrocele, unspecified
CPT/HCPCS: 72197; A9575

== ENCOUNTER 2025-03-14 14:55 | Emergency (ER) | payer BC, SELFPAY ==
--- OUTSIDE RECORDS SUMMARY | 2025-03-14 14:58 | XMS_ITS | Clinical Summary ---
Author Organization [facility] Address [address] [place] [id number] Care Team Providers Care Bioinformatician Name Role Phone None Primary Care Provider Unavailabl e Allergies No known active allergies Medications hydrocortisone -pramoxine 1%-1% RECTAL (PROCTOFOAM HC) rectal foam Insert rectally 3 times daily if needed for Rectal Pain/Itching. Use as needed. 1 Container 0 1 Active omeprazole (PRILOSEC) 40 mg capsule Take 1 capsule by mouth once daily. 30 capsule 1 2 Active Immunizations Immunization Administration Dates Next Due Tdap 01/11/2010 Social History Tobacco Use Types Packs/Day Years Used Date Smoking Tobacco: Every Day Cigarettes Alcohol Use Standard Drinks/Week Comments Yes 0 (1 standard drink = 0.6 oz pur e alcohol) Sex and Gender Information Value Date Recorded Sex Assigned at Not on file Legal Sex Male 7:25 AM CHIEF TRANSFER AND PUMPHOUSE OPERATOR Gender Identity Not on file Sexual Orientation Not on file Obstetrics History Last Filed Vital Signs Vital Sign Reading Time Taken Comments Blood Pressure 123/78 11/21/2011 3:47 PM CHIEF TRANSFER AND PUMPHOUSE OPERATOR Pulse 62 11/21/2011 3:47 PM CHIEF TRANSFER AND PUMPHOUSE OPERATOR Temperature 36.6 C (97.9 F) 11/21/2011 3:47 PM CHIEF TRANSFER AND PUMPHOUSE OPERATOR Respiratory Rate 18 07/13/2007 6:15 AM CDT Oxygen Saturation 99% 07/13/2007 6:15 AM CDT Inhaled Oxygen Concentration - - Weight 68.5 kg (151 lb) 11/21/2011 3:47 PM CHIEF TRANSFER AND PUMPHOUSE OPERATOR Height - - Body Mass Index - - Plan of Treatment Health Maintenance Due Date Last Done Comments Depression screening for age 12+ 1995 HIV for age 15-65 11/23/1998 BMI (ht and wt on same day) for age 18+ 11/23/2001 Hepatitis C screening for ag e 18-79 11/23/2001 Hepatitis B series for 19+ ( 1 of 3 - 19+ 3-dose series) 11/23/2002 Lipids for age 35-44 11/23/2018 Tetanus booster 01/12/2020 01/11/2010 COVID-19 vaccine series ( - 2023- season) 2024 Influenza Vaccine (Season Ended) 2025 (IA) Tdap Completed 01/11/2010 Pneumococcal series for age 6-49 Aged Out No longer eligible based on patient's age to complete this topic Insurance [facility] Care Teams Bioinformatician Relationship Specialty Start Date End Date None . PCP - General 07/13/07
[2025-03-14 15:17] VITALS: BP 127/79; PULSE 68; RESP 14; TEMP 38.6; O2SAT 99; BMI 21.7
[2025-03-14 16:26] LABS: Hematocrit 41.8 % (37.0-53.0); Hemoglobin* 14.1 gm/dL (13.5-17.5); Immature Granulocytes Abs Auto 0.00 K/uL (0.00-0.30); Immature Granulocytes Pct Auto 0.0 %; Mean Corpuscular HGB Conc 34 gm/dL (32-36); Mean Corpuscular Hemoglobin 32 pg (26-34); Mean Corpuscular Volume 94 fL (80-100); RDW Coefficient of Variation % 12.2 % (11.5-15.5); Red Blood Count 4.46 m/uL (4.30-5.90); White Blood Count* 6.72 K/uL (4.50-11.00)
[2025-03-14 16:27] LABS: Lymphocytes Absolute Auto 0.60 K/uL (0.90-2.90); Slide Review Reflex No
--- OUTSIDE RECORDS SUMMARY | 2025-03-14 16:28 | XMS_ITS | Data Portability ---
Author Organization 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 Plan of Treatment Reminders Order Date Submit Date Provider Last Modified By Organization Details Last Modified Time Details Appointments None recorded. Lab urinalysis , dipstick 2023 024 [email or web address] 6 [facility], [facility], [place], [address], 16:11:41 Referral None recorded. Procedures None recorded. Surgeries None recorded. Imaging CT, abdomen + pelvis, w/wo contrast 2023 024 [facility], [address] [place], [address], 4 10:21:57 Medication Orders None recorded. Patient TargetsNo targets recorded. Patient InstructionsNo instructions recorded. Reason for Referral None Reported. Results Created Date Observation Date Name Description Value Unit Range Abnormal Flag Note LastModifiedBy Organization Detail LastModifiedTime 02/09/2002/09/2024 urina lysis , dipst ick BLOOD Negati ve Not Available [facility] [address], [place], [address], 02/09/2024 16:09:17 02/09/2002/09/2024 urina lysis , dipst ick BILIRUBIN Negati ve Not Available [facility] [address], [place], [address], 02/09/2024 16:09:17 02/09/20 24 02/09/2024 urina lysis , dipst ick UROBILINOGEN 0.2 mg/dL (Norm) Not Available [place] [address], [place], [address], 02/09/2024 16:09:17 02/09/20 24 02/09/2024 urina lysis , dipst ick KETONES Negati ve Not Available [place] [address], [place], [address], 02/09/2024 16:09:17 02/09/20 24 02/09/2024 urina lysis , dipst ick PROTEIN Negati ve Not Available [place] [address], [place], [address], 02/09/2024 16:09:17 02/09/20 24 02/09/2024 urina lysis , dipst ick NITRITES Negati ve Not Available [place] [address], [place], [address], 02/09/2024 16:09:17 02/09/20 24 02/09/2024 urina lysis , dipst ick GLUCOSE Negati ve Not Available [place] [address], [place], [address], 02/09/2024 16:09:17 02/09/20 24 02/09/2024 urina lysis , dipst ick p.H. 5.0 Not Available [place] [address], [place], [address], 02/09/2024 16:09:17 02/09/20 24 02/09/2024 urina lysis , dipst ick S.G. (Specific [place]) 1.020 Not Available [facility] [address], [place], [address], 02/09/2024 16:09:17 02/09/20 24 02/09/2024 urina lysis , dipst ick LEUKOCYTES Negati ve Not Available [facility] [address], [place], [address], 02/09/2024 16:09:17 02/22/20 24 02/19/2024 CT, abdom en + pelvi s, w/wo contr ast No observ ation record ed. [facility] [address] [place], [address], 02/23/2024 05:52:39 Result Notes None recorded. Procedures Surgical History Date Name Laterality Status Provider Name and Address Organization Details Recorded Time 02/09/2024 Cystoscopy - male completed Bang Espinal MD [address], [address], [facility] 02/09/2024 18:36:23 Imaging Results None recorded. Procedure Notes None recorded. Medical Equipment None Reported. Allergies No known drug allergies Medications Not known to be on any medication Vitals Date Recorded Body mass index (BMI) Body height Body weight Provider Name and Address Organization Details Last Updated DateTime 02/09/2024 21.4 kg/m2 182.88 cm 18082.6799 377796 g Not Available Health Note 02/09/2024 08:16:16 Social History Question Answer Notes LastModified by Organizat ion Details LastModified Time Tobacco Smoking Status Current Every Day Smoker Not Available Health Note 02/08/2024 22:40:45 What Is Your Level Of Caffeine Consumption? None [email or web address] Information not available 02/08/2024 How Much Tobacco Do You Chew? None [email or web address] Information not available 02/08/2024 What Was The Date Of Your Most Recent Tobacco Screening? 02/09/2024 [email or web address] Information not available 02/08/2024 What Is Your Relationship Status? Single [email or web address] Information not available 02/08/2024 Are You Sexually Active? Yes [email or web address] Information not available 02/08/2024 How Much Tobacco Do You Smoke? 1 PPD [email or web address] Information not available 02/08/2024 How Many Years Have You Smoked Tobacco? 18 [email or web address] Information not available 02/08/2024 How Many Days In The Past Year Have You Consumed 5 Or More Drinks? 10 [email or web address] Information no t available 02/08/2024 Sex: Unknown Functional Status Question Answer Note LastModified by Organizat ion Details LastModified Time Do you use any illicit or recreational drugs? Yes [email or web address] Information not available 02/08/2024 What is your level of alcohol consumption? Occasional [email or web address] Information not available 02/08/2024 Do you or have you ever used smokeless tobacco? Never used smokeless tobacco [email or web address] Information not available 02/08/2024 Do you or have you ever used e-cigarettes or vape? Former user of electronic cigarettes [email or web address] Information not available 02/08/2024 Mental Status None recorded. Family History Relationship Description Onset Age of this Age Resolved Age Notes LastModified by Organization Details LastModified Time Maternal Grandmother Family history of breast cancer [email or web address] Not available 2023 22:40:43 Maternal Grandmother Family history of malignant neoplasm [email or web address] Not available 2023 22:40:44 Paternal Grandmother Family history of breast cancer [email or web address] Not available 2023 22:40:44 Paternal Grandmother Family history of malignant neoplasm [email or web address] Not available 2023 22:40:44 Father Family history of malignant neoplasm [email or web address] Not available 2023 22:40:44 Medical History Condition Response Diabetes N Sexually Transmitted Infection Y Bleeding Disorder N High Blood Pressure N Kidney Stones Y Cancer N Lung Disease N Depression N High Cholesterol N GERD/Acid Reflux N Heart Disease N Immunizations Vaccine Type Date Status Note Provider Nam e and Address Organization Details Recorded Time influenza, unspecified formulation completed Not Available Health Note 02/08/2024 22:40:47 Past Encounters Encounter ID Performer Location Encounter Start Date Encounter Closed Date Diagnosis/Indication Diagnosis SNOMED-CT Code Diagnosis ICD10 Code Diagnosis Note [id number] Bang Espinal MD [facility] [address] [place] [address] 02/09/2024 08:16:10 02/10/2024 07:32:41 Microscopic hematuria 234688576 R31.29 Microscopi c hematuria. Negative cystoscopy . CT is ordered. Reassuranc e on cystoscopy . Will call CT results Health Concerns Section Related Observation LastModified by Organization Detai ls LastModified Time None Recorded Concern Status LastModified by Organization Details LastModified Time None Recorded Advance Directives Directive None Recorded Payers Insurance Date Sequence Insurance Name Policy Number Policy Plata Covered Member ID Plata Member ID Guarantor Name 02/06/2024 1 [place] [id number] Luis Enrique Hutchison [id number] Luis Enrique Hutchison Notes Date Note Type Note Provider Name and Address Organization Details Recorded Time 02/09/2024 text/html Chief complaint: 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 2-5 red blood cells. Confirmed on repeat testing. Here for complete evaluations. Denies burning pain fever chills history of infection,. History of kidney stone greater than 10 years ago. Hematuria:Began:9 Weeks agoAssociated symptoms:OTHER Bang Espinal MD [address], [place], [address], [facility] 02/09/2024 18:36:54
--- NOTE | 2025-03-14 16:29 | ED_ITS ---
HPI - Dental/Oral General Date Seen: 03/14/25 Chief complaint: Dental/Oral/Mouth Injury/Pain Stated complaint: Headache, hot and cold, joint pain Time Seen by Provider: 03/14/25 15:41 Source: patient Mode of arrival: ambulatory Limitations: no limitations History of Present Illness HPI Narrative: Patient is a 39-year-old male presenting for dental pain. He states he saw his dentist this past and was told he when she needs a root canal. They are unable to do it at that time. Was given prescription for amoxicillin to fill if he starts developing any worsening pain. Pain got worse yesterday so he started taking amoxicillin and ibuprofen. Continue to take today with no relief of his symptoms. Pain is his left upper molars around tooth 14 or 15. Also states today started having diffuse joint pain and been feeling hot and cold. Has not had any objective fevers at home. Denies any trismus. Denies chest pain, shortness breath, headache, abdominal pain, weakness, numbness, diarrhea, constipation, dysuria. Related Data Home Medications ?Medication ?Instructions ?Recorded ?Confirmed No Known Home Medications 03/21/2210/08 Allergies Allergy/AdvReac Type Severity Reaction Status Date / Time No Known Drug Allergies Allergy Verified 03/14/25 15:17 Review of Systems Status of ROS: Reports: 10 or more systems reviewed and unremarkable except as noted in History and below [facility] Kidney stones ?N20.0 - Calculus of kidney (ICD-10) Tobacco dependence ?F17.200 - Nicotine dependence, unspecified, uncomplicated (ICD-10) Cellulitis ?L03.90 - Cellulitis, unspecified (ICD-10) No significant past medical history Surgical History Ganglion ?M67.40 - Ganglion, unspecified site (ICD-10) No significant past surgical history Family History Paternal Grandfather Alzheimers disease Myocardial infarction Father Cancer COPD (chronic obstructive pulmonary disease) Paternal Grandmother Cancer Maternal Grandmother Cancer Maternal Grandfather Myocardial infarction Social History What is your current living situation?: I presently have a place to live Problems where you live: no known problems In the past 12 months, utilities in danger of being shut off: no In past 12 months, lack of transportation kept you from medical appts, meetings, work, or getting things needed for daily living: no In the past 12 mos, have been you worried that your food would run out before you had money to buy more?: never true In the past 12 mos, the food you bought just didn't last and you didn't have money to buy more?: never true Highest level of school completed/degree received: high school graduate Smoking Status: Former smoker What tobacco products do you use: cigarettes Smoking packs per day: 1 Smoking cigarettes per day: 20.0 Years smoked: 15 Smoking pack-years: 15.00 Smoking quit date/years: <= 15 years ago Do you use any of these nicotine containing products: None Second hand tobacco smoke exposure: Yes How often do you have a drink containing alcohol: 2-3 times a week Alcohol type: beer How many standard drinks containing alcohol do you have on a typical day: 3 or 4 How often do you have six or more drinks on one occasion: Less than monthly AUDIT-C Alcohol total score: 5 Non-prescribed substance use: denies use Caffeine: No How often does anyone, including family, friends and others, physically hurt you : never How often does anyone, including family, friends and others, insult or talk down to you: never How often does anyone, including family, friends and others, threaten you with harm: never How often does anyone, including family, friends and others, scream or curse at you: never Do you think of yourself as: straight/heterosexual Gender Identity: male service: No Exam Narrative: Exam Narrative: Const: Well-nourished, Well-developed, in mild to moderate distress Eyes: PERRL, no conjunctival injection, and symmetrical lids HENT: Atraumatic external nose and ears. Moist mucous membranes. Small amount of swelling noted around base of tooth 15. Mild erythema here also. Neck: Symmetric, trachea midline, No thyromegaly. CVS: RRR, No murmurs or gallops. Peripheral pulses 2+ and equal in all extremities RESP: Unlabored respiratory effort. Clear to auscultation bilaterally. GI: Nontender/Nondistended, No rebound or guarding. MSK:Extremities w/o deformity, Normal Active ROM Skin: Warm, Dry. No rashes or lesions. Neuro: Normal Muscle tone, No focal neurological deficits. Psych: Awake, Alert, & Oriented x3. Appropriate mood and affect. Const: Vital Signs, click to edit/add: Vital Signs - 24 hr 03/14/25 15:17 03/14/25 17:51 Temperature 101.5 F H Pulse Rate [Pulse Oximeter] 68 64 Respiratory Rate 14 16 Blood Pressure [[facility]] 127/79 116/73 Pulse Oximetry 99 96 Oxygen Delivery Me thod Room Air Room Air Course Vital Signs Vital signs: Initial Vital Signs Temperature 101.5 F H 03/14/25 15:17 Temperature Source Temporal Artery Scan 03/14/25 15:17 Pulse Rate 68 03/14/25 15:17 Respiratory Rate 14 03/14/25 15:17 Blood Pressure 127/79 03/14/25 15:17 Blood Pressure Mean 95 03/14/25 15:17 Blood Pressure Position Sitting 03/14/25 15:17 Pulse Oximetry 99 03/14/25 15:17 Oxygen Delivery Method Room Air 03/14/25 15:17 Vital Signs Temperature 101.5 F H 03/14/25 15:17 Pulse Rate 68 03/14/25 15:17 Respiratory Rate 14 03/14/25 15:17 Blood Pressure 127/79 03/14/25 15:17 Pulse Oximetry 99 03/14/25 15:17 Oxygen Delivery Method Room Air 03/14/25 15:17 Temperature 101.5 F H 03/14/25 15:17 Pulse Rate 64 03/14/25 17:51 Respiratory Rate 16 03/14/25 17:51 Blood Pressure 116/73 03/14/25 17:51 Pulse Oximetry 96 03/14/25 17:51 Oxygen Delivery Method Room Air 03/14/25 17:51 Medications Administered Medications: Discontinued Medications Generic Name Dose Route Start Last Admin Trade Name Freq PRN Reason Stop Dose Admin Ketorolac Tromethamine 30 mg 03/14/25 16:01 03/14/25 16:14 Ketorolac 30 Mg/Ml Inj IM 03/14/25 16:02 30 mg ONCE ONE Administration MDM - Dental/Oral MDM Narrative Medical decision making narrative: Patient is a 39-year-old male presenting for dental pain. There is an area swelling does make me concerned for a small dental abscess. Do not believe it is large enough to drain at this time. He does have a fever so I will check a CBC and BMP. Those results came back non concerning. I do not believe imaging is necessary at this time. Did give him Toradol she states improved his symptoms dramatically. He feels comfortable and okay with discharge. Considering that I believe he now has a small abscess I will switch him from amoxicillin to the Augmentin. Will also give him few oxycodone for pain control. Lab Data Labs: Lab Results 03/14/25 Range/Units 16:01 WBC 6.72 (4.50-11.00) K/uL RBC 4.46 (4.30-5.90) m/uL Hgb 14.1 (13.5-17.5) gm/dL Hct 41.8 (37.0-53.0) % MCV 94 (80-100) fL MCH 32 (26-34) pg MCHC 34 (32-36) gm/dL RDW Coeff of Ying 12.2 (11.5-15.5) % Plt Count 266 (140-440) K/uL Neut % (Auto) 79.5 H (42.0-72.0) % Lymph % (Auto) 8.8 L (20-44) % [place] % (Auto) 11.2 H (0.0-11.0) % Eos % (Auto) 0.4 (0.0-7.0) % Baso % (Auto) 0.1 (0.0-3.0) % Neut # (Auto) 5.30 (1.7-7.0) K/uL Lymph # (Auto) 0.60 L (0.90-2.90) K/uL [place] # (Auto) 0.80 (0.00-0.90) K/UL Eos # (Auto) 0.03 (0.00-0.50) K/uL Baso # (Auto) 0.01 (0.00-0.30) K/uL Abs Immat Gran (auto) 0.00 (0.00-0.30) K/uL Imm/Tot Granulo (auto) 0.0 % Sodium 135 (135-149) mmol/L Potassium 4.0 (3.6-5.1) mmol/L Chloride 105 (96-114) mmol/L Carbon Dioxide 25 (20-32) mmol/L Anion Gap 5 L (7-15) mEq/L BUN 14 (5-24) mg/dL Creatinine 0.8 (0.5-1.5) mg/dL Estimated Creat Clear 124.74 Estimated GFR 114 ml/min Glucose 108 (60-115) mg/dL Calcium 9.2 (8.4-10.6) mg/dL Discharge Plan Discharge Clinical Impression: Abscess, dental Patient Disposition: Home, Self-Care Condition: Stable Instructions: Dental Abscess (ED) Additional Instructions: Take Tylenol and ibuprofen for the pain. If it is not helping you can use the provided oxycodone. Stop taking amoxicillin and instead start taking the Augmentin. Make sure to have close follow-up with your dentist. 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 Prescriptions: No Action No Known Home Medications Follow Up/Referrals: Miguel Cottrell MD [Primary Care Provider, Family Practice] Stand Alone Forms: [employer] Info Instructions
[2025-03-14 16:37] LABS: Chloride* 105 mmol/L (96-114); Sodium* 135 mmol/L (135-149)
[2025-03-14 16:38] LABS: Potassium* 4.0 mmol/L (3.6-5.1)
[2025-03-14 16:41] LABS: Anion Gap 5 mEq/L (7-15); Blood Urea Nitrogen* 14 mg/dL (5-24); Calcium* 9.2 mg/dL (8.4-10.6); Carbon Dioxide* 25 mmol/L (20-32); Creatinine* 0.8 mg/dL (0.5-1.5); Est. Creatinine Clearance* 124.74; Estimated Glomerular Filt Rate 114 ml/min; Glucose* 108 mg/dL (60-115)
[2025-03-14 17:51] VITALS: BP 116/73; PULSE 64; RESP 16; O2SAT 96
== END 2025-03-14 18:00 | disposition home or self-care (01) ==
PROVIDERS: Emergency Provider Student in an Organized Health Care Education/Training Program; PCP Family Medicine
DX: K04.7 Periapical abscess without sinus (principal)
CPT/HCPCS: 36415; 80048; 85025; 96372; 99283; 99284; J1885